=== PATIENT | male | born 1965 | race Caucasian/White ===

== ENCOUNTER 2020-05-16 01:12 | Emergency (ER) | payer MEDICAID, SELFPAY ==
--- NOTE | 2020-05-16 01:16 | XR_ITS ---
WS: [id number] Portable AP upright chest, 05/16/2020 Clinical Data: cough Comparison: PA and lateral chest, 12/28/2018. Findings: No nodules, masses or effusions are seen. The heart is normal. The pulmonary vascularity is not increased. No pneumonia or pneumothorax is seen. There is a dextroscoliosis. The aortic arch and descending aorta show mild tortuosity. The diaphragms are flattened. Monitor leads are on the chest wall. XR/XR chest 1V portable [id number] Impression: Atherosclerosis and hyperinflation.
[2020-05-16 01:24] VITALS: BP 143/92; PULSE 112; RESP 14; TEMP 36.7; O2SAT 98; BMI 22.2
--- NOTE | 2020-05-16 01:27 | ECG_ITS ---
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 Measurements Intervals [place] Rate: 104 P: 76 ME: 146 QRS: 72 QRSD: 96 T: 67 QT: 336 QTc: 444 Interpretive Statements SINUS TACHYCARDIA No previous ECG available for comparison Electronically Signed On 05-16-2020 22:03:22 MEDICAL APPOINTMENT CLERK by Sruthi Correia M.D. [id number]
[2020-05-16 01:30] VITALS: BP 143/92; PULSE 110; RESP 28; O2SAT 97
--- NOTE | 2020-05-16 01:30 | CTR_ITS ---
PROCEDURE INFORMATION: Exam: CT Angiography Chest With Contrast Exam date and time: 05/16/2020 1:32 AM Age: 54 years old Clinical indication: Cough with hemorrhage; Patient HX: Hemoptysis with lower chest discomfort. History of dvt. Exam performed twice. Both attempts did not have ideal bolus timing. Axial images sent from both runs. Can send additional reformats if requested. ; Additional info: Hemoptysis, history of blood clot TECHNIQUE: Imaging protocol: Computed tomographic angiography of the chest with contrast. 3D rendering (Not supervised by radiologist): MIP and/or 3D reconstructed images were created by the technologist. Radiation optimization: All CT scans at this facility use at least one of these dose optimization techniques: automated exposure control; mA and/or kV adjustment per patient size (includes targeted exams where dose is matched to clinical indication); or iterative reconstruction. Contrast material: OMNI 350; Contrast volume: 136 ml; Contrast route: INTRAVENOUS (IV); COMPARISON: CR XR chest 1V portable [id number] 05/16/2020 1:42 AM RADIATION DOSE METRICS: Total DLP (mGy-cm): 1053.82 FINDINGS: Pulmonary arteries: Suboptimal pulmonary arterial contrast intensity secondary to film contrast timing delay abnormalities and additional limitation secondary to motion degradation. Aorta: Unremarkable. No aortic aneurysm. No aortic dissection. Lungs: Hyperinflation. Multiple subpleural bleb formation with areas of pleuroparenchymal scarring. Patchy parenchymal opacities in the lingula and medial left lower lobe. Slightly nodular configured component at the lingula measures 0.8 cm. Subpleural dependent atelectasis right lower lobe posteriorly Pleural spaces: Unremarkable. No pneumothorax. No pleural effusion. Heart: Normal right to left ventricular ratio. Lymph nodes: Small right hilar adenopathy. Small mediastinal adenopathy largest left distal paratracheal lymph node measures 2.0 cm. Stomach and bowel: Prominent expansion of the stomach with food debris. Bones/joints: Mild degenerative change of the spine. Soft tissues: Few scattered calcified granulomata. CT/CT angio chest PE protcl [id number] IMPRESSION: 1. Suboptimal contrast timing bolus and extensive motion does not allow detailed assessment of distal pulmonary arterial structures. No dominant filling defect within main pulmonary arteries. 2. Hyperinflation with areas of pleuroparenchymal scarring. 3. Minor lingula and left lower lung focal parenchymal opacities favoring inflammatory infectious pneumonitis. 4. Minor right hilar and mediastinal adenopathy could be reactive. 5. Slight nodular configuration of opacity at the lingula measures 0.8 cm.For patients at low risk (minimal or absent history of smoking and of other known risk factors), recommend CT Chest at 6-12 months, then consider CT Chest at 18-24 months. For patients at high risk (history of smoking or of other known risk factors), recommend CT Chest at 6-12 months, then CT Chest at 18-24 months. (Reference: Sumit) REFERENCES: Sumit Ortiz, et al. Guidelines for Management of Incidental Pulmonary Nodules Detected on CT Images: From the Fleischner Society 2017. Radiology. 2017;284(1):228-243. Radiation Dose CTDIVOL = (mGy): DLP = 1053.82 (mGy-cm)
--- NOTE | 2020-05-16 01:31 | W.ED.GENADLT ---
HPI - General Adult General: Chief complaint: General Medical Stated complaint: coughing blood clots Time Seen by Provider: 05/16/20 01:29 History of Present Illness: HPI narrative: 54-year-old male patient presents to the emergency department with 2-day history of coughing up blood. He reports yesterday coughed up a small dark-colored blood clot but states today he has coughed up a cupful. He reports his mother has history of blood clots. He denies leg swelling or chest pain, shortness of breath. He is a heavy cigarette smoker. 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 He denies fever chills, denies use of blood thinners. Denies use of aspirin. He also complains of sore throat. Patient also reports he has been out of his atenolol for several days. Onset (ago): day(s) (2) Associated symptoms: Reports cough; Deny chest pain, diaphoresis, dyspnea, headache(s), nausea, rash, palpitations or vomiting Treatments prior to arrival: none Review of Systems General: Reports: 10 or more systems reviewed and unremarkable except in HPI and below Const: Denies: fever(s), chills or diaphoresis Eyes: Denies: blurry vision or eye redness ENMT: Denies: throat pain, dental pain or disequilibrium Card: Denies: chest pain, palpitations or irregular heart rhythm Resp: Reports: hemoptysis; Denies: dyspnea, productive cough, non-productive cough or wheezing GI: Denies: abdominal pain, nausea or vomiting : Denies: dysuria Musc: Denies: neck pain, back pain, joint pain, joint warmth or joint stiffness Skin/Breast: Denies: rash or pruritus Neuro: Denies: headache(s), weakness in extremities or behavioral changes Psych: Denies: anxiety, depression or change in appetite Salo/Lymph: Denies: easy bruising PFS ED PFSH: Medical History (Updated 05/16/20 @ 03:28 by CHERRIE Temple) HTN (hypertension) Tobacco abuse Family History (Updated 05/16/20 @ 01:41 by CHERRIE Temple) Mother Blood clot in vein Social History (Updated 05/16/20 @ 01:51 by CHERRIE Temple) Smoking and tobacco status: current every day smoker cigarettes Packs smoked per day: 1.5 Years cigarettes smoked: 36 Substance/Drug Use: never Caregiver/support person: No Lives independently: Yes Household members: none Housing: House Physical Exam Const: COMMON NORMALS: no acute distress, average body habitus, patient oriented x3, healthy appearing, alert and well nourished GENERAL APPEARANCE: cooperative, comfortable, well kempt, well developed and well hydrated; not anxious, not ill appearing and not frail appearing NUTRITIONAL APPEARANCE: thin ORIENTATION/CONSCIOUSNESS: Yes awake, Yes oriented to person, Yes oriented to place and Yes oriented to time HENMT: COMMON NORMALS: normocephalic, external ears normal, Normal external nose present and moist oral mucous membranes HEAD & SCALP: normocephalic FACE & SINUS: normal facial exam and face symmetric NOSE: Normal external nose present EXTERNAL EAR: Yes external ears normal Eye: COMMON NORMALS: Equal, round and reactive pupils present and EOMs intact bilaterally GENERAL EYE: appearance normal, both eyes and all related structures PUPIL: Yes Equal, round and reactive pupils present Neck/C-Spine: COMMON NORMALS: full ROM and no lymphadenopathy GENERAL: Yes normal visual inspection and Yes trachea midline CERVICAL SPINE: Yes cervical ROM normal Lymph: LYMPHATIC: no lymphadenopathy noted Chest: COMMONS NORMALS: normal inspection of the chest and normal palpation of entire chest wall Resp: COMMON NORMALS: normal respiratory effort, No retractions and No use of accessory muscles EFFORT & INSPECTION: Yes able to speak in complete sentences, No labored and No audible wheezes AUSCULTATION: wheezes, diminished lung sounds bilateral and rub present Cardio: COMMON NORMALS: regular rate, regular rhythm, S1 normal heart sound present, S2 normal heart sound present and Peripheral pulses 2+ throughout RATE: regular rate and tachycardic RHYTHM: regular rhythm HEART SOUNDS: S1 normal heart sound present and S2 normal heart sound present PERIPHERAL PULSES: Peripheral pulses 2+ throughout GI: COMMON NORMALS: Normal to inspection, nondistended, normoactive bowel sounds present, Soft to palpation and non-tender INSPECTION: Yes normal to inspection AUSCULTATION: No Hyperactive bowel sounds present and No Absent bowel sounds PALPATION: Yes Soft to palpation : COMMON NORMALS: Yes no CVA tenderness BLADDER/KIDNEY EXAM: Yes no CVA tenderness Back/Pelvis: COMMON NORMALS: no CVA tenderness, thoracic and lumbar spine normal to inspection and no thoracic nor lumbar tenderness Extremity: COMMON NORMALS: normal to inspection, full ROM, capillary refill normal, no joint enlargement, no clubbing, cyanosis or edema, no calf tenderness and no pedal edema GENERAL: Yes normal exam except as noted Neuro: MARIA ELENA COMA SCALE: document GCS findings Maria Elena coma scale eye opening: Spontaneous [place] coma scale verbal response: Orientated Maria Elena coma scale motor response: Obey commands [place] coma scale total score: 15 COMMON NORMALS: patient oriented x3 and no focal motor deficits SENSORIUM/ORIENTATION: Yes alert, Yes oriented to person, Yes oriented to place and Yes oriented to time SPEECH: speech normal GAIT: Yes Normal gait present MOTOR EXAM: 5/5 motor strength present throughout Psych: COMMON NORMALS: mental status grossly normal, Normal thought process present and cooperative APPEARANCE: Yes well kempt ACTIVITY/MOTOR BEHAVIOR: Yes appropriate eye contact THOUGHT PROCESS: Normal thought process present Skin: COMMON NORMALS: no rashes or lesions noted, no wounds, turgor normal, no petechiae and no mottling GENERAL SKIN EXAM: no rashes or lesions noted, elasticity normal and turgor normal Course Vital Signs: Vital signs: Vital Signs Temperature 98.1 F 05/16/20 01:24 Pulse Rate 101 H 05/16/20 02:33 Respiratory Rate 22 H 05/16/20 02:33 Blood Pressure 129/71 05/16/20 02:33 Pulse Oximetry 94 05/16/20 02:33 MDM - General Adult Lab Data: Labs: Lab Results 05/16/20 05/16/20 05/16/20 Range/Units 01:40 01:40 01:40 WBC 8.0 (4.0-10.0) 10^3/ uL RBC 4.10 (4.1-5.3) 10^6/u L Hgb 12.7 (11.7-16.6) g/dL Hct 37.6 L (42.0-52.0) % MCV 91.7 (80-94) fL MCH 31.0 (28.0-34.0) pg MCHC 33.8 (30.0-36.0) g/dL RDW 13.1 (12.1-15.1) % Plt Count 272 (130-400) 10^3/c mm MPV 9.3 (7.4-10.4) fL Neut % (Auto) 56.9 % Lymph % (Auto) 32.0 % Moore % (Auto) 7.4 % Eos % (Auto) 3.1 % Baso % (Auto) 0.3 % Neut # (Auto) 4.54 (1.8-7.7) 10^3/u L Lymph # (Auto) 2.6 (0.8-4.8) 10^3/u L Moore # (Auto) 0.6 (0.2-0.9) 10^3/u L Eos # (Auto) 0.3 (0.0-0.8) 10^3/u L Baso # (Auto) 0.0 (0.0-0.1) 10^3/u L Nucleated RBC % (a uto) 0 % Nucleated RBCs # 0.0 /100WBC PT 12.40 (12.1-14.9) SECO NDS INR 0.90 (0.8-1.2) Sodium 141 (136-145) mmol/L Potassium 3.8 (3.5-5.1) mmol/L Chloride 102 (98-107) mmol/L Carbon Dioxide 29 (22-29) mmol/L Anion Gap 13.8 (5-19) BUN 11 (6-20) mg/dL Creatinine 0.9 (0.7-1.2) mg/dL GFR Calculation 88.3 L (90-130) mL/min Glucose 109 (65-115) mg/dL Calculated Osmolal ity 292 (285-295) mOsm/k g Calcium 9.2 (8.5-10.5) mg/dL Total Bilirubin 0.2 (0.15-1.2) mg/dL AST 28 (0-40) U/L ALT 17 (0-41) U/L Alkaline Phosphata se 104 (40-130) IU/L Total Protein 7.0 (6.6-8.7) g/dL Albumin 3.8 (3.5-5.2) g/dL Globulin 3.2 (1.3-4.6) g/dL EKG Data^: EKG 1: EKG interpretation date: 05/16/20 EKG interpretation time: 01:40 Computer generated interpretation: Chest CTA 05/16/20 01:30 IMPRESSION: 1. Suboptimal contrast timing bolus and extensive motion does not allow detailed assessment of distal pulmonary arterial structures. No dominant filling defect within main pulmonary arteries. 2. Hyperinflation with areas of pleuroparenchymal scarring. 3. Minor lingula and left lower lung focal parenchymal opacities favoring inflammatory infectious pneumonitis. 4. Minor right hilar and mediastinal adenopathy could be reactive. 5. Slight nodular configuration of opacity at the lingula measures 0.8 cm.For patients at low risk (minimal or absent history of smoking and of other known risk factors), recommend CT Chest at 6-12 months, then consider CT Chest at 18-24 months. For patients at high risk (history of smoking or of other known risk factors), recommend CT Chest at 6-12 months, then CT Chest at 18-24 months. (Reference: Sumit) REFERENCES: Sumit Ortiz, et al. Guidelines for Management of Incidental Pulmonary Nodules Detected on CT Images: From the Fleischner Society 2017. Radiology. 2017;284(1):228-243. Radiation Dose CTDIVOL = (mGy): DLP = 1053.82 (mGy-cm) Sinus tachycardia, abnormal rhythm ECG, ventricular rate 104 Discharge Plan Discharge Patient Disposition: Home Clinical Impression: Hemoptysis, Pneumonitis Condition: Stable Prescriptions: New atenolol 25 mg tablet 25 mg PO DAILY Qty: 30 RF: 0 levofloxacin 750 mg tablet 750 mg PO DAILY 7 Days Qty: 7 RF: 0 Discharge Orders: Discharge ED (Routine); Ordered 05/16/20 Ordered By: Hannah Gutierrez Referrals: Catracho Mix MD [Primary Care Provider] - Discharge Diet: Usual diet Discharge Activity: Resume usual activity Patient Instructions: Acute Hemoptysis (ED), Opioid Safety, Pneumonia - Bacterial Activity Restrictions/Additional Instructions: Take antibiotics until all gone, even if feeling better Drink lots of fluids to avoid dehydration Return the emergency department if you develop difficulty breathing, coughing up large amounts of blood or worsening symptoms such as vomiting Follow-up with Dr. Mix in 5 to 7 days to ensure you are improving Coding Level of Care Code ED Cooking Appliance Repair Technician for Chg Fwd Exam Comprehensive
[2020-05-16] MEDS: iohexol 350 mg/mL 100 mL Btl IV ×2 (02:02→02:17)
[2020-05-16 02:09] LABS: Basophils % 0.3 %; Eosinophils # 0.3 10^3/uL (0.0-0.8); Eosinophils % 3.1 %; Hematocrit 37.6 % (42.0-52.0); Hemoglobin 12.7 g/dL (11.7-16.6); Lymphocytes # 2.6 10^3/uL (0.8-4.8); Mean Corpuscular HGB Conc 33.8 g/dL (30.0-36.0); Mean Corpuscular Volume 91.7 fL (80-94); Mean Platelet Volume 9.3 fL (7.4-10.4); Monocytes # 0.6 10^3/uL (0.2-0.9); Monocytes % 7.4 %; Neutrophils # 4.54 10^3/uL (1.8-7.7); Neutrophils % 56.9 %; Nucleated Red Blood Cells % 0 %; Platelet Count 272 10^3/cmm (130-400); Red Cell Distribution Width 13.1 % (12.1-15.1)
[2020-05-16 02:29] LABS: Alanine Aminotransferase 17 U/L (0-41); Albumin Level 3.8 g/dL (3.5-5.2); Alkaline Phosphatase 104 IU/L (40-130); Anion Gap 13.8 (5-19); Aspartate Amino Transferase 28 U/L (0-40); Blood Urea Nitrogen 11 mg/dL (6-20); Calcium 9.2 mg/dL (8.5-10.5); Carbon Dioxide 29 mmol/L (22-29); Chloride 102 mmol/L (98-107); Globulin 3.2 g/dL (1.3-4.6); Glomerular Filtration Rate 88.3 mL/min (90-130); Glucose 109 mg/dL (65-115); Osmolality Calculated 292 mOsm/kg (285-295); Potassium 3.8 mmol/L (3.5-5.1); Sodium 141 mmol/L (136-145); Total Bilirubin 0.2 mg/dL (0.15-1.2)
[2020-05-16 02:33] VITALS: BP 129/71; PULSE 101; RESP 22; O2SAT 94
[2020-05-16] MEDS: levoFLOXacin 750 mg Tablet PO (03:38)
[2020-05-16 03:40] VITALS: BP 117/76; PULSE 77; RESP 18; TEMP 36.6; O2SAT 94
== END 2020-05-16 03:42 | disposition home or self-care (01) ==
PROVIDERS: Emergency Medicine; Emergency Provider Nurse Practitioner Family; PCP Family Medicine
DX: R04.2 Hemoptysis (principal); J18.9 Pneumonia, unspecified organism; I10 Essential (primary) hypertension; F17.210 Nicotine dependence, cigarettes, uncomplicated
CPT/HCPCS: 71045; 71275; 80053; 85025; 85610; 93005; 99283; Q9967

== ENCOUNTER → 2021-07-18 09:08 | Outpatient (BNVA) | payer MEDICAID, SELFPAY | PROVIDERS: PCP Family Medicine; Visit Provider Family Medicine | DX: Z51.81 Encounter for therapeutic drug level monitoring (principal); Z00.00 Encounter for general adult medical examination without abnormal findings; Z79.1 Long term (current) use of non-steroidal anti-inflammatories (NSAID); Z12.5 Encounter for screening for malignant neoplasm of prostate; E03.9 Hypothyroidism, unspecified; R79.89 Other specified abnormal findings of blood chemistry | CPT/HCPCS: 80053; 84153; 84443; 85025 ==

== ENCOUNTER 2023-02-26 00:38 | Inpatient (IN) | payer MEDICARE, MEDICAID, SELFPAY ==
--- NOTE | 2023-02-26 00:42 | W.ED.PSYCHS ---
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 He states that he is talked to his primary care provider and was advised to come to the emergency department to be evaluated. He states that he is going to use a gun on himself and he does have access to a gun. He states that he has had increased significant life stressors to include being homeless, not being able to work, getting from his and is not able to see his grandkids. Associated symptoms: Reports depression and suicidal ideation Review of Systems General: Reports: 10 or more systems reviewed and unremarkable except in HPI and below Psych: Reports: depression and suicidal ideation [facility] ED PFSH: Medical History (Updated 02/26/23 @ 01:19 by Nic Ferreira MD) HTN (hypertension) Tobacco abuse Surgical History (Updated 12/31/22 @ 13:27 by Catracho Mix MD) History of right knee surgery Right ACL - 10/1999 History of shoulder surgery Right shoulder 07/2014 - Dr Paredes Family History Mother Blood clot in vein Social History (Updated 01/16/23 @ 08:37 by Catracho Mix MD) Smoking and tobacco/nicotine status: current every day tobacco/nicotine user cigarettes Packs smoked per day: 1 Years cigarettes smoked: 36 Alcohol intake: current Alcohol intake frequency: few times a week Substance/Drug Use: former Date of last use: 01/2022 Caregiver/support person: No Lives independently: Yes Household members: none Housing: House Physical Exam Narrative: EXAM NARRATIVE: Constitutional: the patient appears well nourished and of normal development. Vital signs as documented. No acute distress at present. Alert and oriented-to person, place, time and situation. Head, eyes, ears, nose, mouth, throat: Normocephalic, atraumatic. Pupils-equal, round, reactive to light. No scleral icterus. Normal-appearing external ears. Normal appearing nasal turbinates, no drainage. No obvious oral lesions, posterior oropharynx without erythema or exudates. Neck: Supple, trachea is midline, no lymphadenopathy, no jugular venous distension, thyromegaly, or carotid bruits. Carotid upstrokes are brisk bilaterally. Lungs: clear to auscultation to all lung huang. Symmetrical rise and fall of chest, no obvious signs of increased work of breathing at present. Cardiac: Regular rate and rhythm, positive S1, S2. No murmurs, rubs or gallops that I can appreciate Abdomen: Soft, non-tender to palpation, normal active bowel sounds to all quadrants. No palpable masses, no organomegaly and abdominal bruits. Extremities: 2+ pulses in the upper extremities that are equal bilaterally, 2+ pulses in the lower extremities that are equal bilaterally. Non-edematous. Moves all extremities well, sensation to all extremities are noted. Skin: Warm, dry, intact. Course Vital Signs: Vital signs: Vital Signs Temperature 97.3 F L 02/26/23 00:47 Pulse Rate 84 02/26/23 00:47 Respiratory Rate 18 02/26/23 00:47 Blood Pressure 120/63 02/26/23 00:47 Pulse Oximetry 100 02/26/23 00:47 Oxygen Delivery Me thod Room Air 02/26/23 00:47 MDM - Psych Medical Decision Making Physical exam completed and documented, I will obtain psychiatric clearance labs and contact the hospital Neuropsych Unit attending physician for placement on voluntary inpatient basis. Medical Records I reviewed the patient's medical records. Lab Data 02/26/23 01:05 02/26/23 01:05 Laboratory Results WBC 6.41 10^3/uL (3.29-11.43) 02/26/23 01:05 RBC 4.25 10^6/uL (3.85-5.65) 02/26/23 01:05 Hgb 13.10 g/dL (11.27-16.99) 02/26/23 01:05 Hct 39.0 % (37-53) 02/26/23 01:05 MCV 91.8 fl (82-101) 02/26/23 01:05 MCH 30.8 pg (27-33) 02/26/23 01:05 MCHC 33.6 g/dL (30-55) 02/26/23 01:05 RDW 13.2 % (12.1-15.1) 02/26/23 01:05 Plt Count 227 10^3/cmm (157-399) 02/26/23 01:05 MPV 8.9 fL (7.4-10.4) 02/26/23 01:05 Neut % (Auto) 45.8 % 02/26/23 01:05 Lymph % (Auto) 38.2 % 02/26/23 01:05 Hardy % (Auto) 8.0 % 02/26/23 01:05 Eos % (Auto) 7.2 % 02/26/23 01:05 Baso % (Auto) 0.5 % 02/26/23 01:05 Neut # (Auto) 2.94 10^3/uL (1.8-7.7) 02/26/23 01:05 Lymph # (Auto) 2.5 10^3/uL (0.8-4.8) 02/26/23 01:05 Hardy # (Auto) 0.5 10^3/uL (0.2-0.9) 02/26/23 01:05 Eos # (Auto) 0.5 10^3/uL (0.0-0.8) 02/26/23 01:05 Baso # (Auto) 0.0 10^3/uL (0.0-0.1) 02/26/23 01:05 Nucleated RBC % (auto) 0 % 02/26/23 01:05 Nucleated RBCs # 0.0 /100WBC 02/26/23 01:05 Sodium 139 mmol/L (136-145) 02/26/23 01:05 Potassium 3.7 mmol/L (3.5-5.1) 02/26/23 01:05 Chloride 104 mmol/L (98-107) 02/26/23 01:05 Carbon Dioxide 26 mmol/L (22-29) 02/26/23 01:05 Anion Gap 12.7 (5-19) 02/26/23 01:05 BUN 16 mg/dL (6-20) 02/26/23 01:05 Creatinine 0.8 mg/dL (0.7-1.2) 02/26/23 01:05 GFR Calculation 100.0 mL/min (90-130) 02/26/23 01:05 Glucose 68 mg/dL (65-115) 02/26/23 01:05 Calculated Osmolality 287 mOsm/kg (285-295) 02/26/23 01:05 Calcium 9.4 mg/dL (8.5-10.5) 02/26/23 01:05 Total Bilirubin 0.3 mg/dL (0.15-1.2) 02/26/23 01:05 AST 19 U/L (0-40) 02/26/23 01:05 ALT 15 U/L (0-41) 02/26/23 01:05 Alkaline Phosphatase 98 U/L (40-130) 02/26/23 01:05 Total Protein 6.5 g/dL (6.6-8.7) L 02/26/23 01:05 Albumin 3.9 g/dL (3.5-5.2) 02/26/23 01:05 Globulin 2.6 g/dL (1.3-4.6) 02/26/23 01:05 Salicylates < 0.3 mg/dL (3-10) L 02/26/23 01:05 Acetaminophen < 5.0 ug/mL (10-30) L 02/26/23 01:05 Ethyl Alcohol 29 mg/dL (0-10) H 02/26/23 01:05 No radiology studies performed this visit EKG Data EKG 1: Interpretation: Twelve-lead EKG obtained at 0103 demonstrates normal sinus rhythm with a ventricular rate of 77 bpm NC interval 185 QRS duration 101 QT 350 QTc 382 there is no acute ST elevation to demonstrate ischemia I did review the patient's previous EKG and although it does appear to have slight elevation in leads II, III and aVF as well as the V3 V4 V5 and V6 the patient is not actively having any chest pain and it is a similar finding on this EKG as it was on his previous EKG. Discharge Plan Discharge Patient Disposition: Admitted As Inpatient Clinical Impression: Depression with suicidal ideation Condition: Stable Coding Level of Care Code ED Rope Twisting Machine Operator for Rochelle Pichardo
[2023-02-26 00:47] VITALS: BP 120/63; PULSE 84; RESP 18; TEMP 36.3; O2SAT 100; BMI 20.3
--- NOTE | 2023-02-26 01:03 | ECG_ITS ---
[facility] Test Date: 2023-02-26 Pat Name: Alex Tse Department: Room: Gender: Male Lead Systems Developer: : 1965 Requested By: Nic Ferreira Order Number: [id number] Dalia MD: Tim Pederson M.D. Measurements Intervals [place] Rate: 77 P: 77 MO: 185 QRS: 79 QRSD: 101 T: 76 QT: 350 QTc: 397 Interpretive Statements SINUS RHYTHM ST ELEVATION, PROBABLY EARLY REPOLARIZATION [ST ELEVATION WITH NORMALLY INFLECTED T-WAVE] Compared to ECG 05/16/2020 01:35:39 ST (T wave) deviation now present Early repolarization now present Sinus tachycardia no longer present Electronically Signed On 02-26-2023 13:43:02 DIMENSION SPECIFICATION INSPECTOR by Tim Pederson M.D. [id number]
[2023-02-26 01:11] LABS: Basophils % 0.5 %; Eosinophils # 0.5 10^3/uL (0.0-0.8); Eosinophils % 7.2 %; Lymphocytes # 2.5 10^3/uL (0.8-4.8); Lymphocytes % 38.2 %; Mean Corpuscular HGB Conc 33.6 g/dL (30-55); Mean Corpuscular Hemoglobin 30.8 pg (27-33); Mean Corpuscular Volume 91.8 fl (82-101); Mean Platelet Volume 8.9 fL (7.4-10.4); Monocytes # 0.5 10^3/uL (0.2-0.9); Neutrophils # 2.94 10^3/uL (1.8-7.7); Neutrophils % 45.8 %; Nucleated Red Blood Cells % 0 %; Platelet Count 227 10^3/cmm (157-399); Red Blood Count 4.25 10^6/uL (3.85-5.65); Red Cell Distribution Width 13.2 % (12.1-15.1); White Blood Count 6.41 10^3/uL (3.29-11.43)
[2023-02-26 01:32] LABS: Alanine Aminotransferase 15 U/L (0-41); Albumin Level 3.9 g/dL (3.5-5.2); Alcohol Level 29 mg/dL (0-10); Alkaline Phosphatase 98 U/L (40-130); Anion Gap 12.7 (5-19); Aspartate Amino Transferase 19 U/L (0-40); Blood Urea Nitrogen 16 mg/dL (6-20); Calcium 9.4 mg/dL (8.5-10.5); Carbon Dioxide 26 mmol/L (22-29); Chloride 104 mmol/L (98-107); Creatinine Clr Calc Pharmacy 101.4475; Globulin 2.6 g/dL (1.3-4.6); Glucose 68 mg/dL (65-115); Osmolality Calculated 287 mOsm/kg (285-295); Potassium 3.7 mmol/L (3.5-5.1); Sodium 139 mmol/L (136-145); Total Bilirubin 0.3 mg/dL (0.15-1.2); Total Protein 6.5 g/dL (6.6-8.7)
[2023-02-26 01:34] LABS: Acetaminophen < 5.0 ug/mL (10-30); Salicylate < 0.3 mg/dL (3-10)
[2023-02-26 03:04] VITALS: BP 127/83; PULSE 90; RESP 20; TEMP 36.8; O2SAT 96
[2023-02-26 03:15] VITALS: RESP 17
--- NOTE | 2023-02-26 03:41 | PC.ADMIT ---
[address] [facility] Admission Note: The patient,Alex Tse,57 y/o, was given written information regarding hospital policies, unit procedures and contact persons. Patient's smoking status: current every day smoker. A PACK A DAY. Vital Signs - 8 hr 02/26/23 00:47 02/26/23 03:04 02/26/23 03:06 Temperature 97.3 F L 98.3 F Pulse Rate 84 90 Respiratory Rate 18 20 H Blood Pressure 120/63 127/83 Pulse Oximetry 100 96 Oxygen Delivery Method Room Air Room Air Room Air 02/26/23 03:15 Temperature Pulse Rate Respiratory Rate 17 Blood Pressure Pulse Oximetry Oxygen Delivery Method ADMITTED FROM ER VIA WHEELCHAIR, RN AND SECURITY AT 303. PT IS VOUNTARY. PT STATES HE IS HERE DUE TO HAVING SUICIDAL THOUGHTS AND DEPRESSION DAILY FOR THE LAST THREE MONTHS. PT REPORTS HE TAKES CITALOPRAM 40 MG DAILY, SYNTHROID 25 MCGS DAILY AND ATENOLOL 25 MG DAILY. PT STATES HE TAKES HIS MEDS DAILY BUT RAN OUT OF HIS CITALOPRAM THIS WEEK. PT REPORTS GENERALIZED PAIN 5/10 BUT DECLINES ANY PHARMACEUTICAL INTERVENTIONS. PT STATES HE IS HOMELESS, DEPRESSED AND HAS HAD INCREASED THOUGHTS OF SUICIDE WITH NO PLAN. PT DENIES HI AND AVH AT THIS TIME. PT WAS GIVEN FOOD TO EAT REQUESTED AND MADE COMFORTABLE. ORIENTATED TO UNIT, SAFETY RULES AND GUIDELINES. ALL QUESTIONS ANSWERED AND SUPPORT VOICED.
--- NOTE | 2023-02-26 03:43 | PC.NURSE ---
SECURITY CALLED DUE TO STAFF FINDING A CRYSTAL/ICE LIKE SUBSTANCE IN FAMOTIDINE BOTTLE AND A HALF SMOKED MARIJUANA CIGARETTE. SECURITY HERE TO DESTROY PER FACILITY POLICY.
[2023-02-26 06:00] VITALS: RESP 16
--- NOTE | 2023-02-26 06:10 | W.PM.NPUH&PS ---
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 He states that he is talked to his primary care provider and was advised to come to the emergency department to be evaluated. He states that he is going to use a gun on himself and he does have access to a gun. He states that he has had increased significant life stressors to include being homeless, not being able to work, getting from his and is not able to see his grandkids. Associated symptoms: Reports depression and suicidal ideation Admitted to the neuropsychiatric unit for definitive treatment of those issues. He presented today very lethargic. Today BAL of 29 and his UDS has not been obtained at this point. Discussed getting a UDS with him and treatment team. Reports a possible stimulant/methamphetamine use in addition to the alcohol use. Multiple attempts made to engage and attempt to keep him awake with no real success. Most of the information here is obtained from review of current records. An excerpt of his interaction with crisis stabilization is included below for recent history. Only noteworthy mental health care and system is back in January 2011 through August 2011 he did get outpatient treatment at [facility]. Otherwise appears that recent stressors have led to him coming here and active addiction has led to his current presentation and he did report suicidality to emergency room staff. We discussed Dr. Bernard being here tomorrow to attempt to get better history. Per his 11/19/2022 crisis stabilization center notes: Case management: Current Presentation: Client appeared anxious throughout encounter. unkempt, rapid speech and motor activity. Euphoric affect, Tangential thought process. Intervention: Client came in seeking housing. Client indicated he has recently became homeless and does not have a place to go. Upon entry assessment, client indicated he had thoughts of harming someone else. CSS spoke with client concerning these thoughts. Client noted he was angry, but did not want to get in trouble or act upon his feelings. CSS deferred to [facility] to assess for SI. Upon further assessment, client agreed he would not act on these feelings and was more just frustrated and angry. Client agreed to complete and follow safety plan in collaboration with the CSS. Client indicated some positive coping mechanisms include enjoying nature alone, swimming, fishing, and shooting pool. Client has support systems including step daughter, ex , and his oriental orthodox. Client attributes his spirituality to be a major component of his life. Client does have medicare and medicaid. Client does have limited income and draws an SSI check. Client states he has been diagnosed with bipolar but has not taken medication for the last 10 months. Client states he has not been sleeping well, only for 2 hours a night. I am easy to anger and like I am walking on eggshells. Client also said it feels like his brain wont shut off . Client has extensive history of trauma involving of family/friends in which he witnessed firsthand. Client was not interested in receiving services through [facility] at this time. Client indicated he does not have any substance use aside from alcohol, which he stated he doesn't drink to get drunk, just a few beers here and there . Client stated he has used Methamphetamine in the past, but not within the last 10 years. Client says he has many physical ailments making it difficult to perform daily functions and cause him great distress. Client was provided with snack, water, a shower, clothing, and personal hygiene products. Client was also provided a e-Zassi backpack. Return plan was established to follow up with potential housing resources and creating stability goals. Client Response: Client was appreciative of services. Client Barriers: unhoused, mental health, substance use, manic state. Outcome of Encounter: Client left facility and indicated he would return the following day. Current SI: None Current HI: None Therapy note: Current Presentation: [facility] met with Alex due to his initial presentation of agitation and verbalization of wanting to harm his prior roommates. Alex vents about his current living situation and recent escalation between him and his roommates. He reports they have kicked me out and stole my stuff . He is concerned about not being able to take back possession of his belongings and having to start all over . Intervention: DRY CHARGE PROCESS ATTENDANT assessed for safety issues. Alex does verbalize thoughts of throwing them (roommates) out the window ; however, upon further assessment of HI he states i would not do that, i plan to go to the police department after here and see what i got to do to get my stuff back . He reports he is struggling with appropriate anger emotions related to these recent events and HI has crossed his mind; however, denies any intent to act on this. He recognizes he would not want to suffer the consequences of harming someone. Alex does report he has a place to stay, although it is not very comfortable. [facility] educated Alex on [facility] services and encouraged he continue to engage with [facility] staff in order to help address his current stability issues. Client Response to Intervention: Although Alex remained in a somewhat manic state throughout the interview, his behavior turned more positive and thanked this [facility] staff multiple times after hearing how [facility] serviecs could be beneficial to him. He agrees to create a safety plan with [facility] staff Narcisa Sheehan before leaving today. He will reach out to [facility] staff should his HI escalate to a dangerous level. Final Disposition: Alex will create a safety plan with [facility] staff Narcisa Sheehan. Alex will follow back up with [facility] staff regarding working on his stability needs. Current SI: None Current HI: Homicidal Thoughts/Behave (safety plan was completed by Narcisa Sheehan, [facility] Client application support consultant. Meds NPU Home Medications Medication Instructions Recorded Confirmed Last Taken Type atenolol 25 mg tablet 25 mg PO DAILY #30 tabs 12/31/22 02/26/23 Unknown Rx citalopram 20 mg tablet 20 mg PO DAILY #30 tabs 12/31/22 02/26/23 Unknown Rx levothyroxine 25 mcg tablet 25 mcg PO DAILY #30 tabs 12/31/22 02/26/23 Unknown Rx Allergies Allergy/AdvReac Type Severity Reaction Status Date / Time tramadol Allergy ADR-Itching Verified 02/26/23 00:58 PFSH NPU PFSH: Medical History (Updated 02/27/23 @ 18:32 by Navneet Bernard MD) HTN (hypertension) Tobacco abuse Surgical History (Updated 12/31/22 @ 13:27 by Catracho Mix MD) History of right knee surgery Right ACL - 10/1999 History of shoulder surgery Right shoulder 07/2014 - Dr Paredes Family History Mother Blood clot in vein Social History (Updated 01/16/23 @ 08:37 by Catracho Mix MD) Smoking and tobacco/nicotine status: current every day tobacco/nicotine user cigarettes Packs smoked per day: 1 Years cigarettes smoked: 36 Alcohol intake: current Alcohol intake frequency: few times a week Substance/Drug Use: former Date of last use: 01/2022 Caregiver/support person: No Lives independently: Yes Household members: none Housing: House Mental Status Exam MSE Comments: This is a well-nourished well-developed white male in hospital scrubs with limited grooming and eye contact. No abnormal movements except for psychomotor retardation. Uncooperative with exam in no significant distress. Speech was limited and decreased rate and volume. Mood not described affect subdued. Thought process linear. Thought content: Patient did not respond to questions with anxiety but had no aggression or disorders, there were no delusions noted, he did not appear to be attending to internal stimuli. Attention and concentration were impaired and memory was not observed but none were formally tested. He was hard to arouse and oriented to self. Insight, judgment and impulse control were impaired. Vitals/I&O/Wt Last Vital Signs Temp 98.3 F 02/26/23 03:04 Pulse 90 02/26/23 03:04 Resp 17 02/26/23 03:15 BP 127/83 02/26/23 03:04 Pulse Ox 96 02/26/23 03:04 O2 Del Method Room Air 02/26/23 03:06 Weight last 48 hrs Weight 64.41 kg Data NPU 02/26/23 01:05 02/26/23 01:05 A&P Assessment and plan (1) Depression: (2) Amphetamine abuse: (3) ETOH abuse: Plan This is a 57-year-old white male with depression and addiction who presents with limited interaction here with suicidal ideation. 1.? Continue current medication. 2.? Encourage individual, group, and milieu therapy. 3.? Continue q-15-minute checks for safety. 4.? Recommend sober living treatment at the highest level of care to which the patient is willing to commit. Involuntary Hold Information 96 Hour Hold: 96 Hour Involuntary Admission: No Attestations NPU Medical Necessity Statement*: Inpatient hospitalization is medically necessary and the clinically appropriate intervention, at this time. We will monitor medications and make changes as indicated. Patient will be in the hospital for over two midnights. Likely length of stay is three to five days. Coding Level of Care Code Acute Code for Chg Fwd Diagnoses Depression F32.A Amphetamine abuse F15.10 ETOH abuse F10.10
--- NOTE | 2023-02-26 06:44 | PC.NURSE ---
Unable to obtain patients vitals due to patient sleeping. RR obtained.
--- NOTE | 2023-02-26 11:11 | PC.OT ---
Attempted OT evaluation twice with second time at 10:05 am. Will attempt at later time.
--- NOTE | 2023-02-26 12:35 | PC.NURSE ---
Despite multiple attempts, patient refused to take his morning medications.
[2023-02-26 14:00] VITALS: BP 110/70; PULSE 107; RESP 13; O2SAT 99
[2023-02-27 06:00] VITALS: RESP 15
[2023-02-27] MEDS: levothyroxine 25 mcg Tablet PO (11:05)
[2023-02-27] MEDS: citalopram 20 mg Tablet PO (11:06)
--- NOTE | 2023-02-27 11:06 | PC.NURSE ---
Did not administer atenolol to patient because BP was 102/66
[2023-02-27 11:09] LABS: Add Urine Microscopic? NO; Charge for UA Resulting for Rev
[2023-02-27 11:34] LABS: Bilirubin Urine Neg (Negative); Blood Urine Neg (Negative); Glucose Urine UA Norm (Normal); Ketones Urine Negative (Negative); Leukocyte Esterase Urine Negative (Negative); Nitrate Urine Negative (Negative); Protein Urine Neg (Negative); Specific Gravity, Urine 1.025 (1.005-1.030); Urine Appearance Clear (CLEAR); Urine Color Dark Yellow (Yellow); Urobilinogen Urine Norm (Negative); pH Urine 5 (5-7)
[2023-02-27 13:35] VITALS: BP 109/61; PULSE 96; RESP 16; TEMP 36.6; O2SAT 98
[2023-02-27 13:45] LABS: Amphetamines Screen Urine Positive (Negative); Barbiturates Screen Urine Negative (Negative); Benzodiazepines Screen Urine Positive (Negative); Cocaine Screen Urine Negative (Negative); Opiate Screen Urine Negative (Negative); PCP Screen Urine Negative (Negative); THC Screen Urine Positive (Negative)
--- NOTE | 2023-02-27 18:21 | P.NPUPN_ITS ---
Subjective NPU 2 Subjective: 57-year-old male admitted for depression and suicidal ideation was positive for alcohol, benzodiazepines, and methamphetamine on admission. Patient continues to endorse depressed mood. He had isolated himself on the milieu. He continued to endorse having suicidal thoughts. He reports that the Celexa had been started on an outpatient basis. He continues to endorse feelings of hopelessness. He had minimized any drug use despite showing up positive for amphetamine on admission. Mental Status Exam 2 MSE Comments: Disheveled white male who appeared older than his stated age with fleeting on contact. He had his had covered by his sheet and was minimally cooperative on interview. His hygiene was poor. Speech was decreased in rate and volume with some slurring of speech noted. There was evidence of mild to moderate psychomotor retardation. His thought process appeared nonlinear and confused. He had endorsed suicidal ideation with no active plan. He denied any homicidal ideation. He did not appear to be responding to internal stimuli and denied any auditory or visual hallucinations. His mood was described as terrible. His affect was mood congruent and restricted in range. His insight is feeble. His judgment is poor. His impulse control appeared limited. He was alert and oriented to person and place but not date month or year. Vitals/I&O/Wt Last Vital Signs Temp 98 F 02/27/23 13:35 Pulse 96 02/27/23 13:35 Resp 16 02/27/23 13:35 BP 109/61 02/27/23 13:35 Pulse Ox 98 02/27/23 13:35 O2 Del Method Room Air 02/27/23 13:35 Weight last 48 hrs Weight 64.41 kg Data NPU 02/26/23 01:05 02/26/23 01:05 A&P Assessment and plan (1) Depression with suicidal ideation: (2) Amphetamine abuse: (3) ETOH abuse: Plan 1. continue individual, group and milieu therapy. 2. Restart Atenolol and celexa as prescribed 3. [facility] protocol. 4. Recommend sober living treatment at the highest level of care to which the patient is willing to commit. 5. TO-15 minute checks. Involuntary Hold Information 2 96 Hour Hold: 96 Hour Involuntary Admission: No Attestations NPU 2 Medical Necessity Statement*: Inpatient hospitalization is medically necessary and deemed to be the clinically appropriate intervention at this time. The patient medications will be initiated and adjusted as clinically indicated. Patient is likely length of stay is 4-6 days. Coding Level of Care Code Acute Code for g Fwd Diagnoses Depression with suicidal ideation F32.A; R45.851 Amphetamine abuse F15.10 ETOH abuse F10.10
[2023-02-27 20:28] VITALS: BP 131/86; PULSE 78; RESP 16; O2SAT 99
--- NOTE | 2023-02-27 20:39 | PC.NURSE ---
IN ROOM RESTING WITH EYES CLOSED. DENIES PAIN, SI/HI AND AVH AT THIS TIME. PT STATES I JUST WANT TO SLEEP NOT ANSWER ALL THOSE QUESTIONS. PT ROLLED OVER AND WENT BACK TO RESTING WITH EYES CLOSED. SUPPORT VOICED.
[2023-02-28 06:00] VITALS: BP 122/70; PULSE 70; RESP 16; TEMP 36.5; O2SAT 97
[2023-02-28] MEDS: citalopram 20 mg Tablet PO (08:57)
[2023-02-28] MEDS: atenolol 50 mg Tablet 25 MG PO (08:58)
[2023-02-28] MEDS: levothyroxine 25 mcg Tablet PO (08:58)
[2023-02-28 14:00] VITALS: BP 104/63; PULSE 77; RESP 16; TEMP 36.6; O2SAT 97
--- NOTE | 2023-02-28 14:35 | P.NPUPN_ITS ---
Subjective NPU 2 Subjective: 57-year-old male admitted for depression and suicidal ideation was positive for alcohol, benzodiazepines, and methamphetamine on admission. Patient had continued to complain variety of problems including pain behind his ear. He reported having pain in his back and had requested pain medications. He reported no side effects from his current medication. He reported no suicidal thoughts today. Patient continues to endorse depressed mood. He had isolated himself on the milieu. He had continued to minimize the effects of his amphetamine abuse and his hospitalization here. Mental Status Exam 2 MSE Comments: Disheveled white male who appeared older than his stated age with fleeting eye contact. He was superficially cooperative on interview. His hygiene was poor. Speech was decreased in rate and volume with some slurring of speech noted. There was evidence of mild to moderate psychomotor retardation. His thought process appeared linear today. He had endorsed suicidal ideation with no active plan. He denied any homicidal ideation. He did not appear to be responding to internal stimuli and denied any auditory or visual hallucinations. His mood was described as okay. His affect was restricted in range. His insight is feeble. His judgment is poor. His impulse control appeared limited. He was alert and oriented to person and place but not date month or year. Vitals/I&O/Wt Last Vital Signs Temp 98 F 02/28/23 14:00 Pulse 77 02/28/23 14:00 Resp 16 02/28/23 14:00 BP 104/63 02/28/23 14:00 Pulse Ox 97 02/28/23 14:00 O2 Del Method Room Air 02/28/23 14:00 Weight last 48 hrs Weight 69.853 kg Data NPU 02/26/23 01:05 02/26/23 01:05 A&P Assessment and plan (1) Depression with suicidal ideation: (2) Amphetamine abuse: (3) ETOH abuse: Plan 1. continue individual, group and milieu therapy. 2. Restart Atenolol and celexa as prescribed 3. [facility] protocol. 4. Recommend sober living treatment at the highest level of care to which the patient is willing to commit. 5. TO-15 minute checks. Involuntary Hold Information 2 96 Hour Hold: 96 Hour Involuntary Admission: No Attestations NPU 2 Medical Necessity Statement*: Inpatient hospitalization is medically necessary and deemed to be the clinically appropriate intervention at this time. The patient medications will be initiated and adjusted as clinically indicated. Patient is likely length of stay is 2-3 days. Coding Level of Care Code Acute Code for [facility] Fwd Diagnoses Depression with suicidal ideation F32.A; R45.851 Amphetamine abuse F15.10 ETOH abuse F10.10
[2023-02-28 19:48] VITALS: BP 104/62; PULSE 76; RESP 14; TEMP 36.9; O2SAT 96
[2023-03-01 06:00] VITALS: BP 100/61; PULSE 78; RESP 15; TEMP 36.5; O2SAT 97
[2023-03-01] MEDS: atenolol 50 mg Tablet 25 MG PO (08:38)
[2023-03-01] MEDS: citalopram 20 mg Tablet PO (08:39)
[2023-03-01] MEDS: levothyroxine 25 mcg Tablet PO (08:39)
[2023-03-01 14:00] VITALS: BP 112/72; PULSE 65; RESP 20; TEMP 36.8; O2SAT 98
--- NOTE | 2023-03-01 17:48 | W.PM.NPUPNS ---
Subjective NPU Subjective: 57-year-old male admitted for depression and suicidal ideation was positive for alcohol, benzodiazepines, and methamphetamine on admission. Patient appeared minimally engaged in treatment. He had continued to endorse depressed mood. He continued to spend much of the daytime in his room. He had reported a myriad of issues with his pain particularly in his lower back and reported headaches. He had not requested any pain medications today. He had reported some difficulties with sleep continuity disruption. He had endorsed that his Celexa had not been effective at that his dose to help with his depression in the past. Mental Status Exam MSE Comments: Disheveled white male who appeared older than his stated age with fleeting eye contact. He was cooperative on interview. His hygiene was poor. Speech was decreased in rate and volume with normal volume and no slurring of speech. There was evidence of mild to moderate psychomotor retardation. His thought process appeared linear today. He had endorsed suicidal ideation with no active plan. He denied any homicidal ideation. He did not appear to be responding to internal stimuli and denied any auditory or visual hallucinations. His mood was described as depressed. His affect was restricted in range. His insight is feeble. His judgment is poor. His impulse control appeared limited. He was alert and oriented to person and place and time today. Vitals/I&O/Wt Last Vital Signs Temp 98.3 F 03/01/23 14:00 Pulse 65 03/01/23 14:00 Resp 20 H 03/01/23 14:00 BP 112/72 03/01/23 14:00 Pulse Ox 98 03/01/23 14:00 O2 Del Method Room Air 03/01/23 14:00 Weight last 48 hrs Weight 69.853 kg Data NPU 02/26/23 01:05 02/26/23 01:05 A&P Assessment and plan (1) Depression with suicidal ideation: (2) Amphetamine abuse: (3) ETOH abuse: Plan 1. continue individual, group and milieu therapy. 2. Restart Atenolol and increase celexa to 30mg daily 3. [facility] protocol. 4. Recommend sober living treatment at the highest level of care to which the patient is willing to commit. 5. TO-15 minute checks. Involuntary Hold Information 96 Hour Hold: 96 Hour Involuntary Admission: No Attestations NPU Medical Necessity Statement*: Inpatient hospitalization is medically necessary and deemed to be the clinically appropriate intervention at this time. The patient medications will be initiated and adjusted as clinically indicated. Patient is likely length of stay is 3-4 days. Coding Level of Care Code Acute Code for [facility] Fwd Diagnoses Depression with suicidal ideation F32.A; R45.851 Amphetamine abuse F15.10 ETOH abuse F10.10
[2023-03-01 19:49] VITALS: BP 95/59; PULSE 74; RESP 16; TEMP 36.8; O2SAT 98
[2023-03-02 06:00] VITALS: BP 100/62; PULSE 74; RESP 15; TEMP 36.7; O2SAT 98
[2023-03-02] MEDS: citalopram 20 mg Tablet 30 MG PO (08:06)
[2023-03-02] MEDS: levothyroxine 25 mcg Tablet PO (08:06)
[2023-03-02] MEDS: acetaminophen 325 mg Tablet 650 MG PO (08:12)
[2023-03-02 14:00] VITALS: BP 113/68; PULSE 71; RESP 13; TEMP 36.9; O2SAT 99
--- NOTE | 2023-03-02 16:15 | P.NPUPN_ITS ---
Subjective NPU 2 Subjective: 57-year-old male admitted for depression and suicidal ideation was positive for alcohol, benzodiazepines, and methamphetamine on admission. Patient described his mood is a little better today. He continued to isolate himself on the milieu and spend most of the day in bed resting. He had reported that this was a typical pattern for him after he had used methamphetamines. He reported no recent history of alcohol withdrawal. He continued to report headaches and back pain. He did not continue to show little motivation for attending groups. He continued to continue to struggle with completion of activities of daily living. He reported no feelings of hopelessness or worthlessness. Mental Status Exam 2 MSE Comments: Disheveled, disinterested, white male who appeared older than his stated age with fleeting eye contact. He was cooperative on interview. His hygiene was poor. Speech was decreased in rate and volume with normal volume and no slurring of speech. There was evidence of mild to moderate psychomotor retardation. His thought process appeared linear today. He had endorsed no suicidal ideation with no active plan. He denied any homicidal ideation. He did not appear to be responding to internal stimuli and denied any auditory or visual hallucinations. His mood was described as a little better. His affect was flat. His insight is feeble. His judgment is poor. His impulse control appeared limited. He was alert and oriented to person and place and time. Vitals/I&O/Wt Last Vital Signs Temp 98.4 F 03/02/23 14:00 Pulse 71 03/02/23 14:00 Resp 13 03/02/23 14:00 BP 113/68 03/02/23 14:00 Pulse Ox 99 03/02/23 14:00 O2 Del Method Room Air 03/02/23 06:00 Data NPU 02/26/23 01:05 02/26/23 01:05 A&P Assessment and plan (1) Depression with suicidal ideation: (2) Amphetamine abuse: (3) ETOH abuse: Plan 1. continue individual, group and milieu therapy. 2. Restart Atenolol and continue celexa to 30mg daily 3. [facility] protocol. 4. Recommend sober living treatment at the highest level of care to which the patient is willing to commit. 5. TO-15 minute checks. Involuntary Hold Information 2 96 Hour Hold: 96 Hour Involuntary Admission: No Attestations NPU 2 Medical Necessity Statement*: Inpatient hospitalization is medically necessary and deemed to be the clinically appropriate intervention at this time. The patient medications will be initiated and adjusted as clinically indicated. Patient likely length of stay is 3-4 days. Coding Level of Care Code Acute Code for g Fwd Diagnoses Depression with suicidal ideation F32.A; R45.851 Amphetamine abuse F15.10 ETOH abuse F10.10
[2023-03-02 19:51] VITALS: BP 90/64; PULSE 82; RESP 16; TEMP 36.6; O2SAT 97
[2023-03-03 06:00] VITALS: BP 108/65; PULSE 90; RESP 15; O2SAT 98
[2023-03-03] MEDS: levothyroxine 25 mcg Tablet PO (09:03)
[2023-03-03] MEDS: citalopram 20 mg Tablet 30 MG PO (09:03)
[2023-03-03] MEDS: atenolol 50 mg Tablet 25 MG PO (09:04)
[2023-03-03] MEDS: nicotine 21 mg Patch 1 PATCH TRANSDERMA (13:37)
[2023-03-03 14:00] VITALS: BP 104/66; PULSE 63; RESP 16; TEMP 36.9; O2SAT 100
--- NOTE | 2023-03-03 16:02 | P.NPUPN_ITS ---
Subjective NPU 2 Subjective: 57-year-old male admitted for depression and suicidal ideation was positive for alcohol, benzodiazepines, and methamphetamine on admission. Patient reported no psychotic symptoms at this time. He reported that his mood was getting better. He had stated that he had hoped to find a place to live as he had been homeless for several months. He was agreeable to follow-up but did not wish to have any substance abuse rehabilitation services at this time. He had continued to complain of mild headaches. He continued to isolate himself on the milieu but appeared more engaged in self-care including showering and brushing his teeth. Mental Status Exam 2 MSE Comments: Disheveled, white male who appeared older than his stated age with fleeting eye contact and some improving hygiene. He was cooperative on interview. Speech was more productive with increase in rate and volume with normal volume . There was evidence of mild psychomotor retardation. His thought process appeared linear today. He had endorsed no suicidal ideation with no active plan. He denied any homicidal ideation. He did not appear to be responding to internal stimuli and denied any auditory or visual hallucinations. His mood was described as a little better. His affect was flat. His insight is improving. His judgment is poor. His impulse control appeared limited. He was alert and oriented to person, place and time. Vitals/I&O/Wt Last Vital Signs Temp 98.4 F 03/03/23 14:00 Pulse 63 03/03/23 14:00 Resp 16 03/03/23 14:00 BP 104/66 03/03/23 14:00 Pulse Ox 100 03/03/23 14:00 O2 Del Method Room Air 03/03/23 06:00 Data NPU 02/26/23 01:05 02/26/23 01:05 A&P Assessment and plan (1) Depression with suicidal ideation: (2) Amphetamine abuse: (3) ETOH abuse: Plan 1. continue individual, group and milieu therapy. 2. Restart Atenolol and increase celexa to 40mg daily 3. CIWA protocol. 4. Recommend sober living treatment at the highest level of care to which the patient is willing to commit. 5. TO-15 minute checks. Involuntary Hold Information 2 96 Hour Hold: 96 Hour Involuntary Admission: No Attestations NPU 2 Medical Necessity Statement*: Inpatient hospitalization is medically necessary and deemed to be the clinically appropriate intervention at this time. The patient medications will be initiated and adjusted as clinically indicated. Patient likely length of stay is 1-2 days. Coding Level of Care Code Acute Code for [facility] Fwd Diagnoses Depression with suicidal ideation F32.A; R45.851 Amphetamine abuse F15.10 ETOH abuse F10.10
--- NOTE | 2023-03-03 20:30 | PC.NURSE ---
IN BED RESTING AROUSES TO VOICE. DENIES PAIN, SI/HI AND AVH AT THIS TIME. PT RATES ANXIETY AND DEPRESSION 0/10. PT THEN ROLLED OVER AND WENT BACK TO RESTING.
[2023-03-03 20:48] VITALS: BP 112/68; PULSE 75; RESP 17; TEMP 37.1; O2SAT 98
[2023-03-04 06:00] VITALS: RESP 16
[2023-03-04 08:06] VITALS: BP 112/68; PULSE 75; RESP 16; TEMP 37.1; O2SAT 98
--- NOTE | 2023-03-04 08:23 | DCPLANNER ---
IMM completed 03/04/23 @ 4196 and copy of rights given to pt.
[2023-03-04] MEDS: levothyroxine 25 mcg Tablet PO (08:45)
[2023-03-04] MEDS: atenolol 50 mg Tablet 25 MG PO (08:45)
[2023-03-04] MEDS: citalopram 20 mg Tablet 40 MG PO (08:45)
--- NOTE | 2023-03-04 13:14 | W.PM.NPUDCS ---
Diagnoses at Discharge Discharge Diagnosis (1) Depression with suicidal ideation: Status: Acute (2) Amphetamine abuse: Status: Acute (3) ETOH abuse: Status: Acute Reason for Visit Reason for Visit: damian driver wants to admit self Brief History: History of Present Illness Alex Tse is a 57 year old male who presented the emergency department with the following report: Chief Complaint: Psychiatric Symptoms Stated Complaint: damian driver wants to admit self Time Seen by Provider: 02/26/23 00:40 History of Present Illness: 57-year-old male presents to the emergency department with statements that he feels extremely depressed and feels like he has no way out except for committing suicide. He states that he is talked to his primary care provider and was advised to come to the emergency department to be evaluated. He states that he is going to use a gun on himself and he does have access to a gun. He states that he has had increased significant life stressors to include being homeless, not being able to work, getting from his and is not able to see his grandkids. Associated symptoms: Reports depression and suicidal ideation Admitted to the neuropsychiatric unit for definitive treatment of those issues. He presented today very lethargic. Today BAL of 29 and his UDS has not been obtained at this point. Discussed getting a UDS with him and treatment team. Reports a possible stimulant/methamphetamine use in addition to the alcohol use. Multiple attempts made to engage and attempt to keep him awake with no real success. Most of the information here is obtained from review of current records. An excerpt of his interaction with crisis stabilization is included below for recent history. Only noteworthy mental health care and system is back in January 2011 through August 2011 he did get outpatient treatment at [facility]. Otherwise appears that recent stressors have led to him coming here and active addiction has led to his current presentation and he did report suicidality to emergency room staff. We discussed Dr. Bernard being here tomorrow to attempt to get better history. Per his 11/19/2022 crisis stabilization center notes: Case management: Current Presentation: Client appeared anxious throughout encounter. unkempt, rapid speech and motor activity. Euphoric affect, Tangential thought process. Intervention: Client came in seeking housing. Client indicated he has recently became homeless and does not have a place to go. Upon entry assessment, client indicated he had thoughts of harming someone else. CSS spoke with client concerning these thoughts. Client noted he was angry, but did not want to get in trouble or act upon his feelings. CSS deferred to [facility] to assess for SI. Upon further assessment, client agreed he would not act on these feelings and was more just frustrated and angry. Client agreed to complete and follow safety plan in collaboration with the CSS. Client indicated some positive coping mechanisms include enjoying nature alone, swimming, fishing, and shooting pool. Client has support systems including step daughter, ex , and his religion. Client attributes his spirituality to be a major component of his life. Client does have medicare and medicaid. Client does have limited income and draws an SSI check. Client states he has been diagnosed with bipolar but has not taken medication for the last 10 months. Client states he has not been sleeping well, only for 2 hours a night. I am easy to anger and like I am walking on eggshells. Client also said it feels like his brain wont shut off . Client has extensive history of trauma involving of family/friends in which he witnessed firsthand. Client was not interested in receiving services through [facility] at this time. Client indicated he does not have any substance use aside from alcohol, which he stated he doesn't drink to get drunk, just a few beers here and there . Client stated he has used Methamphetamine in the past, but not within the last 10 years. Client says he has many physical ailments making it difficult to perform daily functions and cause him great distress. Client was provided with snack, water, a shower, clothing, and personal hygiene products. Client was also provided a [email or web address] backpack. Return plan was established to follow up with potential housing resources and creating stability goals. Client Response: Client was appreciative of services. Client Barriers: unhoused, mental health, substance use, manic state. Outcome of Encounter: Client left facility and indicated he would return the following day. Current SI: None Current HI: None Therapy note: Current Presentation: [facility] met with Alex due to his initial presentation of agitation and verbalization of wanting to harm his prior roommates. Alex vents about his current living situation and recent escalation between him and his roommates. He reports they have kicked me out and stole my stuff . He is concerned about not being able to take back possession of his belongings and having to start all over . Intervention: AGED OR DISABLED CARE WORKER assessed for safety issues. Alex does verbalize thoughts of throwing them (roommates) out the window ; however, upon further assessment of HI he states i would not do that, i plan to go to the police department after here and see what i got to do to get my stuff back . He reports he is struggling with appropriate anger emotions related to these recent events and HI has crossed his mind; however, denies any intent to act on this. He recognizes he would not want to suffer the consequences of harming someone. Alex does report he has a place to stay, although it is not very comfortable. AGED OR DISABLED CARE WORKER educated Alex on [facility] services and encouraged he continue to engage with [facility] staff in order to help address his current stability issues. Client Response to Intervention: Although Alex remained in a somewhat manic state throughout the interview, his behavior turned more positive and thanked this [facility] staff multiple times after hearing how [facility] serviecs could be beneficial to him. He agrees to create a safety plan with [facility] staff Narcisa Sheehan before leaving today. He will reach out to [facility] staff should his HI escalate to a dangerous level. Final Disposition: Alex will create a safety plan with [facility] staff Narcisa Sheehan. Alex will follow back up with [facility] staff regarding working on his stability needs. Current SI: None Current HI: Homicidal Thoughts/Behave (safety plan was completed by Narcisa Sheehan, [facility] Client business support liaison. Hospital Course Hospital Course During the hospitalization, the patient had routine laboratory studies which were within normal limits except for a few outliers.? Additionally, there was a general medical evaluation which was also within normal limits and revealed no new acute processes.? At the time of discharge, lethality was denied and psychosis was resolving.? Mood and anxiety were well managed.? The patient endorsed a plan to avoid all drugs of abuse and follow up with the aftercare recommendations of the treatment team.? The patient was evaluated and deemed to be absent credible lethality and had achieved the maximum benefit from an inpatient hospitalization, and so was discharged.? Patient was restarted on celexa and it was increased to a a dose of 40mg daily with improved energy, mood and motivation at discharge. Involuntary Hold Information 96 Hour Hold: 96 Hour Involuntary Admission: No Mental Status Exam MSE Comments: white male who appeared older than his stated age with fleeting eye contact and some improving hygiene. He was cooperative on interview. Speech was more productive with increase in rate and volume with normal volume . There was continued evidence of mild psychomotor retardation. His thought process appeared linear today. He had endorsed no suicidal ideation with no active plan. He denied any homicidal ideation. He did not appear to be responding to internal stimuli and denied any auditory or visual hallucinations. His mood was described as good. His affect was less restricted. His insight is improving. His judgment is adequate. His impulse control appeared limited. He was alert and oriented to person, place and time. His recent and remote memory were grossly intact. Discharge Data Studies Completed and Pending: Laboratory Results WBC 6.41 10^3/uL (3.2 9-11.43) 02/26/23 01:05 RBC 4.25 10^6/uL (3.8 5-5.65) 02/26/23 01:05 Hgb 13.10 g/dL (11.27 -16.99) 02/26/23 01:05 Hct 39.0 % (37-53) 02/26/23 01:05 MCV 91.8 fl (82-101) 02/26/23 01:05 MCH 30.8 pg (27-33) 02/26/23 01:05 MCHC 33.6 g/dL (30-55) 02/26/23 01:05 RDW 13.2 % (12.1-15.1 ) 02/26/23 01:05 Plt Count 227 10^3/cmm (157 -399) 02/26/23 01:05 MPV 8.9 fL (7.4-10.4) 02/26/23 01:05 Neut % (Auto) 45.8 % 02/26/23 01:05 Lymph % (Auto) 38.2 % 02/26/23 01:05 [place] % (Auto) 8.0 % 02/26/23 01:05 Eos % (Auto) 7.2 % 02/26/23 01:05 Baso % (Auto) 0.5 % 02/26/23 01:05 Neut # (Auto) 2.94 10^3/uL (1.8 -7.7) 02/26/23 01:05 Lymph # (Auto) 2.5 10^3/uL (0.8- 4.8) 02/26/23 01:05 [place] # (Auto) 0.5 10^3/uL (0.2- 0.9) 02/26/23 01:05 Eos # (Auto) 0.5 10^3/uL (0.0- 0.8) 02/26/23 01:05 Baso # (Auto) 0.0 10^3/uL (0.0- 0.1) 02/26/23 01:05 Nucleated RBC % (a uto) 0 % 02/26/23 01:05 Nucleated RBCs # 0.0 /100WBC 02/26/23 01:05 Sodium 139 mmol/L (136-1 45) 02/26/23 01:05 Potassium 3.7 mmol/L (3.5-5 .1) 02/26/23 01:05 Chloride 104 mmol/L (98-10 7) 02/26/23 01:05 Carbon Dioxide 26 mmol/L (22-29) 02/26/23 01:05 Anion Gap 12.7 (5-19) 02/26/23 01:05 BUN 16 mg/dL (6-20) 02/26/23 01:05 Creatinine 0.8 mg/dL (0.7-1. 2) 02/26/23 01:05 GFR Calculation 100.0 mL/min (90- 130) 02/26/23 01:05 Glucose 68 mg/dL (65-115) 02/26/23 01:05 Calculated Osmolal ity 287 mOsm/kg (285- 295) 02/26/23 01:05 Calcium 9.4 mg/dL (8.5-10 .5) 02/26/23 01:05 Total Bilirubin 0.3 mg/dL (0.15-1 .2) 02/26/23 01:05 AST 19 U/L (0-40) 02/26/23 01:05 ALT 15 U/L (0-41) 02/26/23 01:05 Alkaline Phosphata se 98 U/L (40-130) 02/26/23 01:05 Total Protein 6.5 g/dL (6.6-8.7 ) L 02/26/23 01:05 Albumin 3.9 g/dL (3.5-5.2 ) 02/26/23 01:05 Globulin 2.6 g/dL (1.3-4.6 ) 02/26/23 01:05 Urine Color Dark yellow (Yel low) 02/27/23 08:59 Urine Appearance Clear (CLEAR) 02/27/23 08:59 Urine pH 5 (5-7) 02/27/23 08:59 Ur Specific Gravit y 1.025 (1.005-1.0 30) 02/27/23 08:59 Urine Protein Neg (Negative) 02/27/23 08:59 Urine Glucose (UA) Norm (Normal) 02/27/23 08:59 Urine Ketones Negative (Negati ve) 02/27/23 08:59 Urine Blood Neg (Negative) 02/27/23 08:59 Urine Nitrate Negative (Negati ve) 02/27/23 08:59 Urine Bilirubin Neg (Negative) 02/27/23 08:59 Urine Urobilinogen Norm mg/dL (Negat rufina) 02/27/23 08:59 Ur Leukocyte June ase Negative (Negati ve) 02/27/23 08:59 Salicylates < 0.3 mg/dL (3-10 ) L 02/26/23 01:05 Urine Opiates Scre en Negative ng/mL (N egative) 02/27/23 08:59 Acetaminophen < 5.0 ug/mL (10-3 0) L 02/26/23 01:05 Ur Barbiturates Sc reen Negative ng/mL (N egative) 02/27/23 08:59 Ur Phencyclidine S crn Negative ng/mL (N egative) 02/27/23 08:59 Ur Amphetamines Sc reen Positive ng/mL (N egative) H 02/27/23 08:59 U Benzodiazepines Scrn Positive ng/mL (N egative) H 02/27/23 08:59 Urine Cocaine Scre en Negative ng/mL (N egative) 02/27/23 08:59 U Marijuana (THC) Screen Positive ng/mL (N egative) H 02/27/23 08:59 Ethyl Alcohol 29 mg/dL (0-10) H 02/26/23 01:05 Vitals: Last Vital Signs Temp 98.7 F 03/04/23 08:06 Pulse 75 03/04/23 08:06 Resp 16 03/04/23 08:06 BP 112/68 03/04/23 08:06 Pulse Ox 98 03/04/23 08:06 O2 Del Method Room Air 03/03/23 20:48 Discharge Plan Discharge Patient Disposition: Home Condition: Stable Prescriptions: New citalopram 20 mg Tablet 40 mg PO DAILY 30 Days Qty: 60 1RF Continued atenolol 25 mg tablet 25 mg PO DAILY 30 Days Qty: 30 1RF Rx Instructions: take 1 PO daily levothyroxine 25 mcg tablet 25 mcg PO DAILY 30 Days Qty: 30 1RF Discontinued citalopram 20 mg tablet 20 mg PO DAILY Qty: 30 6RF Discharge Orders: Discharge Order (Routine); Ordered 03/04/23 Ordered By: Navneet Bernard [facility]Other[facility] - 03/23/23 11:30 am (Appointment for services with Bev Lundberg) Catracho Mix MD [Primary Care Provider] - Discharge Diet: Usual diet Discharge Activity: Resume usual activity Patient Instructions: Citalopram (By mouth), Methamphetamine Use Disorder (DC), Suicide Prevention (DC), Opioid Safety Discharge Attestations NPU Time Spent in Discharge Care*: less than 30 min Specific Discharge Activities: Specific discharge activities: educating patient and evaluating patient/reviewing data Coding Level of Care Code Acute Code for [facility] Fwd Diagnoses Depression with suicidal ideation F32.A; R45.851 Amphetamine abuse F15.10 ETOH abuse F10.10
== END 2023-03-04 09:03 | disposition home or self-care (01) | DRG 881 ==
LOC: ER 01:19 → NP 02:09
PROVIDERS: Admitting Provider Psychiatry & Neurology Psychiatry; Emergency Provider Internal Medicine; PCP Family Medicine; Visit Provider Psychiatry & Neurology Psychiatry
DX: F32.A Depression, unspecified (principal); R45.851 Suicidal ideations; Z59.00 Homelessness unspecified; I10 Essential (primary) hypertension; F17.210 Nicotine dependence, cigarettes, uncomplicated; F15.10 Other stimulant abuse, uncomplicated; F10.10 Alcohol abuse, uncomplicated
CPT/HCPCS: 80053; 80306; 80307; 81003; 85025; 93005; 97165; 99285

== ENCOUNTER 2023-10-07 23:05 | Inpatient (IN) | payer MEDICARE, MEDICAID, SELFPAY ==
[2023-10-07 23:10] VITALS: BP 119/64; PULSE 78; RESP 16; TEMP 37.1; O2SAT 97
--- NOTE | 2023-10-07 23:30 | PC.NURSE ---
Pt. was asked to leave out patient surgery area, while friends that were with him were also asked to leave hospital grounds and stop sleeping on the lawn. Pt. went around and checked into ER to be seen .
--- NOTE | 2023-10-07 23:58 | ECG_ITS ---
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 Measurements Intervals [place] Rate: 73 P: 82 [place]: 180 QRS: 78 QRSD: 97 T: 75 QT: 364 QTc: 402 Interpretive Statements SINUS RHYTHM Compared to ECG 02/26/2023 01:03:26 Early repolarization changes in the inferior and anterolateral leads ST (T wave) deviation no longer present Early repolarization no longer present Electronically Signed On 10-08-2023 1:01:35 CDT by Yocasta Alvarez M.D. [id number]
[2023-10-08 00:25] LABS: Basophils % 0.4 %; Eosinophils # 0.4 10^3/uL (0.0-0.8); Eosinophils % 5.4 %; Hematocrit 36.1 % (37-53); Lymphocytes # 2.5 10^3/uL (0.8-4.8); Lymphocytes % 37.2 %; Mean Corpuscular HGB Conc 33.5 g/dL (30-55); Mean Corpuscular Hemoglobin 31.2 pg (27-33); Mean Platelet Volume 9.6 fL (7.4-10.4); Monocytes # 0.6 10^3/uL (0.2-0.9); Monocytes % 8.8 %; Neutrophils # 3.21 10^3/uL (1.8-7.7); Neutrophils % 48.1 %; Nucleated Red Blood Cells % 0 %; Platelet Count 211 10^3/cmm (157-399); Red Blood Count 3.88 10^6/uL (3.85-5.65); White Blood Count 6.69 10^3/uL (3.29-11.43)
[2023-10-08 00:58] LABS: Alanine Aminotransferase 19 U/L (0-41); Albumin Level 3.9 g/dL (3.5-5.2); Alkaline Phosphatase 84 U/L (40-130); Anion Gap 12.2 (5-19); Aspartate Amino Transferase 20 U/L (0-40); Blood Urea Nitrogen 13 mg/dL (6-20); Calcium 8.9 mg/dL (8.5-10.5); Carbon Dioxide 30 mmol/L (22-29); Chloride 105 mmol/L (98-107); Creatinine Clr Calc Pharmacy 77.8522; Globulin 2.6 g/dL (1.3-4.6); Glucose 70 mg/dL (65-115); Osmolality Calculated 295 mOsm/kg (285-295); Potassium 4.2 mmol/L (3.5-5.1); Sodium 143 mmol/L (136-145); Thyroid Stimulating Hormone 5.49 uIU/mL (0.27-4.20); Total Bilirubin 0.2 mg/dL (0.15-1.2); Total Protein 6.5 g/dL (6.6-8.7)
[2023-10-08 01:00] LABS: Acetaminophen < 5.0 ug/mL (10-30); Alcohol Level < 10 mg/dL (0-10); Salicylate < 0.3 mg/dL (3-10)
[2023-10-08 01:14] LABS: Add Urine Microscopic? NO; Charge for UA Resulting for Rev
--- NOTE | 2023-10-08 01:22 | W.ED.PSYCHS ---
HPI - Psych General: Chief Complaint: Psychiatric Symptoms Stated Complaint: pain in neck Time Seen by Provider: 10/07/23 23:44 History of Present Illness: Patient presents to the ER reporting that he wants to end his life. He does not have anywhere to go rough and it was helping him just dropped him off and has not returned to get him. Patient is post to go to rehab in [place] on Wednesday for math but is now homeless and he says he just wants to end it all. Review of Systems General: Reports: 10 or more systems reviewed and unremarkable except in HPI and below PFSH ED PFSH: Medical History Psychiatric care HTN (hypertension) Tobacco abuse Surgical History History of right knee surgery Right ACL - 10/1999 History of shoulder surgery Right shoulder 07/2014 - Dr Paredes Family History Mother Blood clot in vein Social History Smoking and tobacco/nicotine status: current every day tobacco/nicotine user cigarettes Packs smoked per day: 1 Years cigarettes smoked: 36 Alcohol intake: current Alcohol intake frequency: few times a week Substance/Drug Use: former Date of last use: 01/2022 Caregiver/support person: No Lives independently: Yes Household members: none Housing: House Physical Exam Const: COMMON NORMALS: no acute distress, average body habitus, patient oriented x3, no limitations, healthy appearing, alert and well nourished HENMT: COMMON NORMALS: normocephalic, atraumatic, hearing grossly normal bilaterally, external ears normal, Normal external nose present and moist oral mucous membranes HEAD & SCALP: normocephalic and atraumatic NOSE: Normal external nose present EXTERNAL EAR: Yes external ears normal Neck/C-Spine: COMMON NORMALS: no JVD Chest: COMMONS NORMALS: normal inspection of the chest and normal palpation of entire chest wall Resp: COMMON NORMALS: normal respiratory effort, No retractions, No use of accessory muscles and clear to auscultation bilaterally AUSCULTATION: clear to auscultation bilaterally Cardio: COMMON NORMALS: no JVD, regular rate, regular rhythm, S1 normal heart sound present, S2 normal heart sound present, No gallops present (Cardio), No clicks present (Cardio), No murmurs present (Cardio) and No rub (Cardio) RATE: regular rate RHYTHM: regular rhythm HEART SOUNDS: S1 normal heart sound present and S2 normal heart sound present GI: COMMON NORMALS: Normal to inspection, nondistended, normoactive bowel sounds present, Soft to palpation, non-tender, No hepatosplenomegaly present and no masses PALPATION: Yes Soft to palpation and Yes No hepatosplenomegaly present Neuro: COMMON NORMALS: patient oriented x3 SENSORIUM/ORIENTATION: Yes alert Course Vital Signs: Vital signs: Vital Signs Temperature 97.9 F 10/08/23 04:00 Pulse Rate 77 10/08/23 04:00 Respiratory Rate 16 10/08/23 04:00 Blood Pressure 63/45 10/08/23 04:00 Pulse Oximetry 98 10/08/23 04:00 Oxygen Delivery Me thod Room Air 10/08/23 04:00 [facility] - Psych Medical Decision Making Medical clearance will be obtained once medical clearance is obtained patient will be discussed with Dr. Romero, Dr. Romero accepted the patient for MPU for further evaluation and treatment. Lab Data 10/07/23 00:00 10/07/23 00:00 Laboratory Results WBC 6.69 10^3/uL (3.29-11.43) 10/07/23 00:00 RBC 3.88 10^6/uL (3.85-5.65) 10/07/23 00:00 Hgb 12.10 g/dL (11.27-16.99) 10/07/23 00:00 Hct 36.1 % (37-53) L 10/07/23 00:00 MCV 93.0 fl (82-101) 10/07/23 00:00 MCH 31.2 pg (27-33) 10/07/23 00:00 MCHC 33.5 g/dL (30-55) 10/07/23 00:00 RDW 14.0 % (12.1-15.1) 10/07/23 00:00 Plt Count 211 10^3/cmm (157-399) 10/07/23 00:00 MPV 9.6 fL (7.4-10.4) 10/07/23 00:00 Neut % (Auto) 48.1 % 10/07/23 00:00 Lymph % (Auto) 37.2 % 10/07/23 00:00 [place] % (Auto) 8.8 % 10/07/23 00:00 Eos % (Auto) 5.4 % 10/07/23 00:00 Baso % (Auto) 0.4 % 10/07/23 00:00 Neut # (Auto) 3.21 10^3/uL (1.8-7.7) 10/07/23 00:00 Lymph # (Auto) 2.5 10^3/uL (0.8-4.8) 10/07/23 00:00 [place] # (Auto) 0.6 10^3/uL (0.2-0.9) 10/07/23 00:00 Eos # (Auto) 0.4 10^3/uL (0.0-0.8) 10/07/23 00:00 Baso # (Auto) 0.0 10^3/uL (0.0-0.1) 10/07/23 00:00 Nucleated RBC % (auto) 0 % 10/07/23 00:00 Nucleated RBCs # 0.0 /100WBC 10/07/23 00:00 Sodium 143 mmol/L (136-145) 10/07/23 00:00 Potassium 4.2 mmol/L (3.5-5.1) 10/07/23 00:00 Chloride 105 mmol/L (98-107) 10/07/23 00:00 Carbon Dioxide 30 mmol/L (22-29) H 10/07/23 00:00 Anion Gap 12.2 (5-19) 10/07/23 00:00 BUN 13 mg/dL (6-20) 10/07/23 00:00 Creatinine 0.9 mg/dL (0.7-1.2) 10/07/23 00:00 GFR Calculation 87.0 mL/min (90-130) L 10/07/23 00:00 Glucose 70 mg/dL (65-115) 10/07/23 00:00 Calculated Osmolality 295 mOsm/kg (285-295) 10/07/23 00:00 Calcium 8.9 mg/dL (8.5-10.5) 10/07/23 00:00 Total Bilirubin 0.2 mg/dL (0.15-1.2) 10/07/23 00:00 AST 20 U/L (0-40) 10/07/23 00:00 ALT 19 U/L (0-41) 10/07/23 00:00 Alkaline Phosphatase 84 U/L (40-130) 10/07/23 00:00 Total Protein 6.5 g/dL (6.6-8.7) L 10/07/23 00:00 Albumin 3.9 g/dL (3.5-5.2) 10/07/23 00:00 Globulin 2.6 g/dL (1.3-4.6) 10/07/23 00:00 TSH 5.49 uIU/mL (0.27-4.20) H 10/07/23 00:00 Urine Color Yellow (Yellow) 10/08/23 01:02 Urine Appearance Clear (CLEAR) 10/08/23 01:02 Urine pH 6.5 (5-7) 10/08/23 01:02 Ur Specific [place] 1.015 (1.005-1.030) 10/08/23 01:02 Urine Protein Neg (Negative) 10/08/23 01:02 Urine Glucose (UA) Norm (Normal) 10/08/23 01:02 Urine Ketones Negative (Negative) 10/08/23 01:02 Urine Blood Neg (Negative) 10/08/23 01:02 Urine Nitrate Negative (Negative) 10/08/23 01:02 Urine Bilirubin Neg (Negative) 10/08/23 01:02 Urine Urobilinogen 1 mg/dL (Negative) H 10/08/23 01:02 Ur Leukocyte Esterase Negative (Negative) 10/08/23 01:02 Salicylates < 0.3 mg/dL (3-10) L 10/07/23 00:00 Urine Opiates Screen Negative ng/mL (Negative) 10/08/23 01:02 Acetaminophen < 5.0 ug/mL (10-30) L 10/07/23 00:00 Ur Barbiturates Screen Negative ng/mL (Negative) 10/08/23 01:02 Ur Phencyclidine Scrn Negative ng/mL (Negative) 10/08/23 01:02 Ur Amphetamines Screen Positive ng/mL (Negative) H 10/08/23 01:02 U Benzodiazepines Scrn Negative ng/mL (Negative) 10/08/23 01:02 Urine Cocaine Screen Negative ng/mL (Negative) 10/08/23 01:02 U Marijuana (THC) Screen Positive ng/mL (Negative) H 10/08/23 01:02 Ethyl Alcohol < 10 mg/dL (0-10) 10/07/23 00:00 All radiology interpretation(s) finalized by discharge Discharge Plan Discharge Patient Disposition: Admitted As Inpatient Admit Provider: Miller Romero Clinical Impression: Suicidal ideation, Polysubstance abuse Condition: Stable Coding Level of Care Code ED Beef Pluck Trimmer for Rochelle Pichardo
[2023-10-08 01:26] LABS: Amphetamines Screen Urine Positive (Negative); Barbiturates Screen Urine Negative (Negative); Benzodiazepines Screen Urine Negative (Negative); Cocaine Screen Urine Negative (Negative); Opiate Screen Urine Negative (Negative); PCP Screen Urine Negative (Negative); THC Screen Urine Positive (Negative)
[2023-10-08 01:38] LABS: Urine Appearance Clear (CLEAR); Urine Color Yellow (Yellow)
[2023-10-08 01:39] LABS: Bilirubin Urine Neg (Negative); Blood Urine Neg (Negative); Glucose Urine UA Norm (Normal); Ketones Urine Negative (Negative); Leukocyte Esterase Urine Negative (Negative); Nitrate Urine Negative (Negative); Protein Urine Neg (Negative); Specific Gravity, Urine 1.015 (1.005-1.030); Urobilinogen Urine 1 mg/dL (Negative); pH Urine 6.5 (5-7)
--- NOTE | 2023-10-08 02:32 | PC.NURSE ---
Patient dressed out of regular clothing and put in green psych scrubs. All belongings removed and placed in labeled bags.
--- NOTE | 2023-10-08 03:19 | PC.NURSE ---
Report called to Nic ALONSO in NPU; all questions and concerns addressed at time of report.
[2023-10-08 04:00] VITALS: BP 63/45; PULSE 77; RESP 16; TEMP 36.6; O2SAT 98
[2023-10-08] MEDS: ibuprofen 600 mg Tablet PO (05:11)
[2023-10-08 06:00] VITALS: BP 109/61; PULSE 68; RESP 15; TEMP 36.8; O2SAT 97
--- NOTE | 2023-10-08 07:09 | P.NPUHP_ITS ---
Providers/Chief Complaint 2 Admitting Physician: Miller Romero MD Primary Care Provider: Catracho Mix MD Chief Complaint: pain in neck dizzy feels like pass out HPI NPU History of Present Illness Alex Tse is a 58 year old male who presented to the emergency department with the following report: Chief Complaint: Psychiatric Symptoms Stated Complaint: pain in neck Time Seen by Provider: 10/07/23 23:44 History of Present Illness: Patient presents to the ER reporting that he wants to end his life. He does not have anywhere to go rough and it was helping him just dropped him off and has not returned to get him. Patient is post to go to rehab in [place] on Wednesday for math but is now homeless and he says he just wants to end it all. He was admitted to the neuropsychiatric unit for definitive treatment of those issues. He is known to [facility] through inpatient and outpatient services and his last hospitalization was last year. An excerpt of his March 04, 2023 discharge summary is included below for context. He presents today reporting: Chief complaint The patient expressed distress over being left alone for extended periods, specifically mentioning an instance of being left at a location for 11 hours. The patient also reported struggling with addiction, specifically methamphetamine, for the past three months. History of the present complaint The patient, who was last seen in 2022, has been struggling with a methamphetamine addiction for an extended period. The addiction has been particularly severe for the past three months. The patient is currently enrolled in [facility] ([facility]) and is planning to enter a long-term sober living facility on the upcoming Wednesday. The patient has been living with a female individual for about four months, but this arrangement has ended, which has caused some distress. The patient is currently not working and is on disability. Despite being connected with services, the patient continues to struggle with addiction. The patient has previously been prescribed medication for blood pressure but is not currently on any psychiatric medication. The patient has not found any medication effective for their addiction in the past. The patient's plan is to continue without medication for now, but there is a possibility of restarting a previously prescribed medication. The patient's care team will be contacted regarding the upcoming stay at the sober living facility. We discussed the risks, benefits and alternatives of restarting his medication including Celexa for depression and anxiety and Synthroid and atenolol and he understood and agreed to proceed as is documented in this note. Mental health history The patient has a history of psychiatric consultations, with the last one being in 2022. The patient is currently enrolled in [facility] ([facility]) and has been struggling with addiction. There is no history of psychiatric medication use. Social history The patient has been living with a female weatherization administrator for four months but is no longer staying with her. The patient is currently unemployed and on disability. The patient has a history of methamphetamine use and is currently struggling with addiction. Per his 03/04/2023 [facility] inpatient psychiatric discharge summary: Discharge Diagnosis (1) Depression with suicidal ideation: Status: Acute (2) Amphetamine abuse: Status: Acute (3) ETOH abuse: Status: Acute Reason for Visit Reason for Visit: damian cobianagnes wants to admit self Brief History: History of Present Illness Alex Tse is a 57 year old male who presented the emergency department with the following report: Chief Complaint: Psychiatric Symptoms Stated Complaint: damian driver wants to admit self Time Seen by Provider: 02/26/23 00:40 History of Present Illness: 57-year-old male presents to the emergency department with statements that he feels extremely depressed and feels like he has no way out except for committing suicide. He states that he is talked to his primary care provider and was advised to come to the emergency department to be evaluated. He states that he is going to use a gun on himself and he does have access to a gun. He states that he has had increased significant life stressors to include being homeless, not being able to work, getting from his and is not able to see his grandkids. Associated symptoms: Reports depression and suicidal ideation Admitted to the neuropsychiatric unit for definitive treatment of those issues. He presented today very lethargic. Today BAL of 29 and his UDS has not been obtained at this point. Discussed getting a UDS with him and treatment team. Reports a possible stimulant/methamphetamine use in addition to the alcohol use. Multiple attempts made to engage and attempt to keep him awake with no real success. Most of the information here is obtained from review of current records. An excerpt of his interaction with crisis stabilization is included below for recent history. Only noteworthy mental health care and system is back in January 2011 through August 2011 he did get outpatient treatment at [facility]. Otherwise appears that recent stressors have led to him coming here and active addiction has led to his current presentation and he did report suicidality to emergency room staff. We discussed Dr. Bernard being here tomorrow to attempt to get better history. Per his 11/19/2022 crisis stabilization center notes: Case management: Current Presentation: Client appeared anxious throughout encounter. unkempt, rapid speech and motor activity. Euphoric affect, Tangential thought process. Intervention: Client came in seeking housing. Client indicated he has recently became homeless and does not have a place to go. Upon entry assessment, client indicated he had thoughts of harming someone else. CSS spoke with client concerning these thoughts. Client noted he was angry, but did not want to get in trouble or act upon his feelings. CSS [facility] for [facility]. Upon further assessment, client agreed he would not act on these feelings and was more just frustrated and angry. Client agreed to complete and follow safety plan in collaboration with the CSS. Client indicated some positive coping mechanisms include enjoying nature alone, swimming, fishing, and shooting pool. Client has support systems including step daughter, ex , and his hindu. Client attributes his spirituality to be a major component of his life. Client does have medicare and medicaid. Client does have limited income and draws an SSI check. Client states he has been diagnosed with bipolar but has not taken medication for the last 10 months. Client states he has not been sleeping well, only for 2 hours a night. I am easy to anger and like I am walking on eggshells. Client also said it feels like his brain wont shut off . Client has extensive history of trauma involving of family/friends in which he witnessed firsthand. Client was not interested in receiving services through [facility] at this time. Client indicated he does not have any substance use aside from alcohol, which he stated he doesn't drink to get drunk, just a few beers here and there . Client stated he has used Methamphetamine in the past, but not within the last 10 years. Client says he has many physical ailments making it difficult to perform daily functions and cause him great distress. Client was provided with snack, water, a shower, clothing, and personal hygiene products. Client was also provided a [employer] backpack. Return plan was established to follow up with potential housing resources and creating stability goals. Client Response: Client was appreciative of services. Client Barriers: unhoused, mental health, substance use, manic state. Outcome of Encounter: Client left facility and indicated he would return the following day. Current SI: None Current HI: None Therapy note: Current Presentation: HEALTH PROFESSOR met with Alex due to his initial presentation of agitation and verbalization of wanting to harm his prior roommates. Alex vents about his current living situation and recent escalation between him and his roommates. He reports they have kicked me out and stole my stuff . He is concerned about not being able to take back possession of his belongings and having to start all over . Intervention: HEALTH PROFESSOR assessed for safety issues. Alex does verbalize thoughts of throwing them (roommates) out the window ; however, upon further assessment of HI he states i would not do that, i plan to go to the police department after here and see what i got to do to get my stuff back . He reports he is struggling with appropriate anger emotions related to these recent events and HI has crossed his mind; however, denies any intent to act on this. He recognizes he would not want to suffer the consequences of harming someone. Alex does report he has a place to stay, although it is not very comfortable. HEALTH PROFESSOR educated Alex on [facility] services and encouraged he continue to engage with [facility] staff in order to help address his current stability issues. Client Response to Intervention: Although Alex remained in a somewhat manic state throughout the interview, his behavior turned more positive and thanked this [facility] staff multiple times after hearing how [facility] serviecs could be beneficial to him. He agrees to create a safety plan with [facility] staff Narcisa Sheehan before leaving today. He will reach out to [facility] staff should his HI escalate to a dangerous level. Final Disposition: Alex will create a safety plan with [facility] staff Narcisa Sheehan. Alex will follow back up with [facility] staff regarding working on his stability needs. Current SI: None Current HI: Homicidal Thoughts/Behave (safety plan was completed by Narcisa Sheehan, [facility] Client operations support specialist. Hospital Course During the hospitalization, the patient had routine laboratory studies which were within normal limits except for a few outliers. Additionally, there was a general medical evaluation which was also within normal limits and revealed no new acute processes. At the time of discharge, lethality was denied and psychosis was resolving. Mood and anxiety were well managed. The patient endorsed a plan to avoid all drugs of abuse and follow up with the aftercare recommendations of the treatment team. The patient was evaluated and deemed to be absent credible lethality and had achieved the maximum benefit from an inpatient hospitalization, and so was discharged. Patient was restarted on celexa and it was increased to a a dose of 40mg daily with improved energy, mood and motivation at discharge. Meds NPU Home Medications Medication Instructions Recorded Confirmed Last Taken Type atenolol 25 mg tablet 25 mg PO DAILY 30 days #30 tabs 03/04/23 10/08/23 Unknown Rx levothyroxine 25 mcg tablet 25 mcg PO DAILY 30 days #30 tabs 03/04/23 10/08/23 Unknown Rx citalopram 20 mg tablet 20 mg PO DAILY 10/08/23 10/08/23 Unknown History Allergies Allergy/AdvReac Type Severity Reaction Status Date / Time tramadol Allergy ADR-Itching Verified 10/07/23 23:17 PFSH NPU 2 PFSH: Medical History Psychiatric care HTN (hypertension) Tobacco abuse Surgical History History of right knee surgery Right ACL - 10/1999 History of shoulder surgery Right shoulder 07/2014 - Dr Paredes Family History Mother Blood clot in vein Social History Smoking and tobacco/nicotine status: current every day tobacco/nicotine user cigarettes Packs smoked per day: 1 Years cigarettes smoked: 36 Alcohol intake: current Alcohol intake frequency: few times a week Substance/Drug Use: former Date of last use: 01/2022 Caregiver/support person: No Lives independently: Yes Household members: none Housing: House Mental Status Exam 2 MSE Comments: This is a slender/underweight white male in hospital scrubs with limited grooming and eye contact. No abnormal movements except for psychomotor retardation. Somewhat cooperative with exam in mild to moderate distress. Speech was limited and decreased rate and volume. Mood described as tired and depressed and frustrated, affect congruent and subdued. Thought process linear. Thought content: Patient endorsed having suicidal thoughts upon admission but denied current suicidal or homicidal ideation, there were no delusions reported or noted, he denied auditory or visual hallucinations. The patient appears to be distressed and struggling with addiction. There is no mention of suicidal risk, thoughts of violence or aggression against others, restlessness, irritability, visual hallucinations, anxiety, or depression.Attention and concentration were impaired and memory appeared mostly reliable but none were formally tested. He was arousable and oriented to person and place. Insight, judgment and impulse control were impaired. Vitals/I&O/Wt Last Vital Signs Temp 98.2 F 10/08/23 06:00 Pulse 68 10/08/23 06:00 Resp 15 10/08/23 06:00 BP 109/61 10/08/23 06:00 Pulse Ox 97 10/08/23 06:00 O2 Del Method Room Air 10/08/23 06:00 Weight last 48 hrs Weight 60.781 kg Data NPU 10/07/23 00:00 10/07/23 00:00 A&P Assessment and plan (1) Depression: (2) Amphetamine abuse: (3) ETOH abuse: (4) Suicidal ideation: (5) Methamphetamine use disorder, severe: (6) Withdrawal from methamphetamine: Plan This is a 57-year-old white male with a history of depression and addiction with previous presentation that was fairly similar who is struggling with methamphetamine addiction and is currently not on any psychiatric medication. The patient is on disability and is not currently working. The patient has been enrolled in [facility] and is planning to go to a long-term sober living place. 1.? Restart Celexa 20 mg p.o. daily along with his atenolol and Synthroid as currently prescribed. 2.? Encourage individual, group, and milieu therapy. 3.? Continue q-15-minute checks for safety. 4.? Recommend sober living treatment at the highest level of care to which the patient is willing to commit. 5. Patient has a sober living facility in [place] that there is a arranged acceptance on Wednesday and we will attempt to work with the case advocate or other providers to ensure that he gets there on Wednesday. Involuntary Hold Information 2 96 Hour Hold: 96 Hour Involuntary Admission: No Attestations NPU 2 Medical Necessity Statement*: Inpatient hospitalization is medically necessary and the clinically appropriate intervention, at this time. We will monitor medications and make changes as indicated. Patient will be in the hospital for over two midnights. Likely length of stay is three to five days. Coding Level of Care Code Acute Code for g Fwd Diagnoses Depression F32.A Amphetamine abuse F15.10 ETOH abuse F10.10 Suicidal ideation R45.851 Methamphetamine use disorder, severe F15.20 Withdrawal from methamphetamine F15.93
[2023-10-08] MEDS: levothyroxine 25 mcg Tablet PO (08:31)
[2023-10-08] MEDS: hyDROXYzine 25 mg Capsule 50 MG PO (08:31)
[2023-10-08] MEDS: acetaminophen 325 mg Tablet 650 MG PO (08:31)
[2023-10-08] MEDS: citalopram 20 mg Tablet PO (08:31)
[2023-10-08] MEDS: atenolol 50 mg Tablet 25 MG PO (08:31)
--- NOTE | 2023-10-08 09:01 | PC.NURSE ---
IN BED RESTING, AROUSES TO VOICE. DENIES SI/HI AND AVH AT THIS TIME. REPORTS NECK PAIN 10/22, RN TO GIVE CELEBREX ORDERED FOR PAIN. RATES ANXIETY 10/22 AND DEPRESSION 12/22., RN NOTIFIED OF PTS ANXIETY AND REQUESTS FOR MEDICATIONS TO DECREASE ANXIETY. PT REPORTS TO RN THAT HE IS SUPPOSE TO GO TO A YEAR LONG TREATMENT/REHAB FOR DRUG AND ALCOHOL ABUSE ON WEDNESDAY. PT STATES GOAL FOR THE DAY IS ' TO GET INTO MY REHAB ON WEDNESDAY. PT DID GET UP TO EAT BREAKFAST AFTER MULTIPLE REQUESTS TO GET UP AND EAT. PT IS ANIMATED WHEN SPEAKING. ALL QUESTIONS ANSWERED AND SUPPORT WAS VOICED.
[2023-10-08 14:00] VITALS: BP 112/65; PULSE 59; RESP 18; TEMP 36.5; O2SAT 97
--- NOTE | 2023-10-08 14:12 | PC.OT ---
Attempted OT evaluation 2x at 9 am and at 14 pm with pt sleeping soundly. Will attempt again at later time.
[2023-10-08 20:43] VITALS: BP 120/76; PULSE 92; RESP 17; O2SAT 98
[2023-10-09 06:00] VITALS: BP 118/68; PULSE 55; RESP 16; O2SAT 99
--- NOTE | 2023-10-09 08:04 | W.PM.NPUPNS ---
Subjective NPU Subjective: Patient presented today reporting that he is doing okay. He reports that he is tolerating the restarting of his medication without any significant concerns. He continues to be focused on his plan to go to the sober living/sobriety program on Wednesday that was arranged by his skilled nursing case manager and reportedly connected with assistance from the crisis stabilization center. We discussed the fact that Dr. Bernard would be here tomorrow and he would continue to assist in executing this plan for Wednesday. He denied any side effects to the medication. Mental Status Exam MSE Comments: This is a slender/underweight white male in hospital scrubs with limited grooming and eye contact. No abnormal movements except for psychomotor retardation. Somewhat cooperative with exam in mild to moderate distress. Speech was limited and decreased rate and volume. Mood described as tired and depressed and frustrated, affect congruent and subdued. Thought process linear. Thought content: Patient endorsed having suicidal thoughts upon admission but denied current suicidal or homicidal ideation, there were no delusions reported or noted, he denied auditory or visual hallucinations. The patient appears to be distressed and struggling with addiction. There is no mention of suicidal risk, thoughts of violence or aggression against others, restlessness, irritability, visual hallucinations, anxiety, or depression.Attention and concentration were impaired and memory appeared mostly reliable but none were formally tested. He was arousable and oriented to person and place. Insight, judgment and impulse control were impaired. Vitals/I&O/Wt Last Vital Signs Temp 97.7 F 10/08/23 14:00 Pulse 55 L 10/09/23 06:00 Resp 16 10/09/23 06:00 BP 118/68 10/09/23 06:00 Pulse Ox 99 10/09/23 06:00 O2 Del Method Room Air 10/08/23 06:00 Weight last 48 hrs Weight 60.781 kg Data NPU 10/07/23 00:00 10/07/23 00:00 A&P Assessment and plan (1) Depression: (2) Amphetamine abuse: (3) ETOH abuse: (4) Suicidal ideation: (5) Methamphetamine use disorder, severe: (6) Withdrawal from methamphetamine: Plan This is a 57-year-old white male with a history of depression and addiction with previous presentation that was fairly similar who is struggling with methamphetamine addiction and is currently not on any psychiatric medication. The patient is on disability and is not currently working. The patient has been enrolled in [facility] and is planning to go to a long-term sober living place. 1.? Restart Celexa 20 mg p.o. daily along with his atenolol and Synthroid as currently prescribed. 2.? Encourage individual, group, and milieu therapy. 3.? Continue q-15-minute checks for safety. 4.? Recommend sober living treatment at the highest level of care to which the patient is willing to commit. 5. Patient has a sober living facility in [place] that there is a arranged acceptance on Wednesday and we will attempt to work with the social work case manager or other providers to ensure that he gets there on Wednesday. Involuntary Hold Information 96 Hour Hold: 96 Hour Involuntary Admission: No Attestations NPU Medical Necessity Statement*: Inpatient hospitalization is medically necessary and the clinically appropriate intervention, at this time. We will monitor medications and make changes as indicated. Likely length of stay is 2-4 days. Coding Level of Care Code Acute Code for [facility] Fwd Diagnoses Depression F32.A Amphetamine abuse F15.10 ETOH abuse F10.10 Suicidal ideation R45.851 Methamphetamine use disorder, severe F15.20 Withdrawal from methamphetamine F15.93
[2023-10-09] MEDS: nicotine 21 mg Patch 1 PATCH TRANSDERMA (08:44)
[2023-10-09] MEDS: levothyroxine 25 mcg Tablet PO (08:44)
[2023-10-09] MEDS: acetaminophen 325 mg Tablet 650 MG PO (08:44)
[2023-10-09] MEDS: citalopram 20 mg Tablet PO (08:44)
[2023-10-09] MEDS: atenolol 50 mg Tablet 25 MG PO (08:45)
[2023-10-09 14:00] VITALS: BP 104/60; PULSE 78; RESP 16; TEMP 36.8; O2SAT 99
[2023-10-09 20:18] VITALS: BP 111/62; PULSE 65; RESP 17; TEMP 36.6; O2SAT 98
[2023-10-09] MEDS: hyDROXYzine 25 mg Capsule 50 MG PO (20:39)
[2023-10-09] MEDS: trazodone 50 mg Tablet PO (20:39)
[2023-10-10 06:00] VITALS: BP 107/62; PULSE 74; RESP 17; O2SAT 100
[2023-10-10] MEDS: levothyroxine 25 mcg Tablet PO (06:06)
[2023-10-10] MEDS: citalopram 20 mg Tablet PO (08:43)
[2023-10-10] MEDS: atenolol 50 mg Tablet 25 MG PO (08:44)
[2023-10-10] MEDS: nicotine 21 mg Patch 1 PATCH TRANSDERMA (08:50)
[2023-10-10 14:00] VITALS: BP 96/54; PULSE 63; RESP 16; TEMP 36.8; O2SAT 100
--- NOTE | 2023-10-10 15:45 | PC.NURSE ---
Patient is supposed to leave to go to [facility] in [place], [place] on Wednesday, October 11, 2023. Patient is to be picked up by Yanet osborn, phone number [phone]. patient is to arrive at the facility before 11am. This nurse called facility to see where medications need to be sent; unable to talk to anybody. Voice message left for return call. Phone number is [phone]. Dr. Bernard made aware.
--- NOTE | 2023-10-10 16:39 | W.PM.NPUPNS ---
Subjective NPU Subjective: 58-year-old male admitted for depression and suicidal ideation was positive for methamphetamine on admission. He had reported continued struggles with methamphetamine abuse despite efforts to discontinue it at this time. He reported that he wished to go to a rehabilitation center. He had reported that he had been depressed as well. He had reported continued homelessness. Mental Status Exam MSE Comments: This is a slender/underweight white male in hospital scrubs with limited grooming and eye contact. No abnormal movements except for psychomotor retardation. He was was cooperative with exam in mild moderate distress. Speech was productive and nnormal in rate and volume. Mood described as depressed. His affect was mood congruent and restricted. His thought process was linear. Thought content: Patient endorsed having no suicidal thoughts or homicidal ideation today. There were no delusions reported or noted, he denied auditory or visual hallucinations. The patient appears to be distressed and struggling with addiction. Attention and concentration were impaired and memory appeared mostly reliable but none were formally tested. He was arousable and oriented to person and place and time. Insight, judgment and impulse control were impaired. Vitals/I&O/Wt Last Vital Signs Temp 98.3 F 10/10/23 14:00 Pulse 63 10/10/23 14:00 Resp 16 10/10/23 14:00 BP 96/54 10/10/23 14:00 Pulse Ox 100 10/10/23 14:00 O2 Del Method Room Air 10/10/23 14:00 Weight last 48 hrs Weight 62.596 kg Data NPU 10/07/23 00:00 10/07/23 00:00 A&P Assessment and plan (1) Depression: (2) Amphetamine abuse: (3) ETOH abuse: (4) Suicidal ideation: (5) Methamphetamine use disorder, severe: (6) Withdrawal from methamphetamine: Plan This is a 57-year-old white male with a history of depression and addiction with previous presentation that was fairly similar who is struggling with methamphetamine addiction and is currently not on any psychiatric medication. The patient is on disability and is not currently working. The patient has been enrolled in [facility] and is planning to go to a long-term sober living place. 1.? Continue Celexa 20 mg p.o. daily along with his atenolol and Synthroid as currently prescribed. 2.? Encourage individual, group, and milieu therapy. 3.? Continue q-15-minute checks for safety. 4.? Recommend sober living treatment at the highest level of care to which the patient is willing to commit. 5. Patient has a sober living facility in [place] that there is a arranged acceptance on Wednesday and we will attempt to work with the pillowcase folder or other providers to ensure that he gets there on Wednesday. Involuntary Hold Information 96 Hour Hold: 96 Hour Involuntary Admission: No Attestations NPU Medical Necessity Statement*: Inpatient hospitalization is medically necessary and the clinically appropriate intervention, at this time. We will monitor medications and make changes as indicated. His Likely length of stay is 2-4 days. Coding Level of Care Code Acute Code for [facility] Fwd Diagnoses Depression F32.A Amphetamine abuse F15.10 ETOH abuse F10.10 Suicidal ideation R45.851 Methamphetamine use disorder, severe F15.20 Withdrawal from methamphetamine F15.93
[2023-10-10] MEDS: acetaminophen 325 mg Tablet 650 MG PO (17:21)
[2023-10-10 20:21] VITALS: BP 112/68; PULSE 80; RESP 18; TEMP 37; O2SAT 96
[2023-10-10] MEDS: hyDROXYzine 25 mg Capsule 50 MG PO (21:27)
[2023-10-11 06:00] VITALS: BP 109/63; PULSE 67; RESP 16; TEMP 36.5; O2SAT 100
[2023-10-11] MEDS: levothyroxine 25 mcg Tablet PO (06:21)
[2023-10-11] MEDS: nicotine 21 mg Patch 1 PATCH TRANSDERMA (07:59)
--- NOTE | 2023-10-11 08:39 | P.NPUDS_ITS ---
Diagnoses at Discharge Discharge Diagnosis (1) Depression: Status: Acute (2) Amphetamine abuse: Status: Resolved (3) ETOH abuse: Status: Resolved (4) Suicidal ideation: Status: Acute (5) Methamphetamine use disorder, severe: Status: Acute (6) Withdrawal from methamphetamine: Status: Acute Reason for Visit Reason for Visit: pain in neck dizzy feels like pass out Brief History: History of Present Illness Alex Tse is a 58 year old male who presented to the emergency department with the following report: Chief Complaint: Psychiatric Symptoms Stated Complaint: pain in neck Time Seen by Provider: 10/07/23 23:44 History of Present Illness: Patient presents to the ER reporting that he wants to end his life. He does not have anywhere to go rough and it was helping him just dropped him off and has not returned to get him. Patient is post to go to rehab in [place] on Wednesday for math but is now homeless and he says he just wants to end it all. He was admitted to the neuropsychiatric unit for definitive treatment of those issues. He is known to [facility] through inpatient and outpatient services and his last hospitalization was last year. An excerpt of his March 04, 2023 discharge summary is included below for context. He presents today reporting: Chief complaint The patient expressed distress over being left alone for extended periods, specifically mentioning an instance of being left at a location for 11 hours. The patient also reported struggling with addiction, specifically methamphetamine, for the past three months. History of the present complaint The patient, who was last seen in 2022, has been struggling with a methamphetamine addiction for an extended period. The addiction has been particularly severe for the past three months. The patient is currently enrolled in [facility] ([facility] and is planning to enter a long-term sober living facility on the upcoming Wednesday. The patient has been living with a female individual for about four months, but this arrangement has ended, which has caused some distress. The patient is currently not working and is on disability. Despite being connected with services, the patient continues to struggle with addiction. The patient has previously been prescribed medication for blood pressure but is not currently on any psychiatric medication. The patient has not found any medication effective for their addiction in the past. The patient's plan is to continue without medication for now, but there is a possibility of restarting a previously prescribed medication. The patient's care team will be contacted regarding the upcoming stay at the sober living facility. We discussed the risks, benefits and alternatives of restarting his medication including Celexa for depression and anxiety and Synthroid and atenolol and he understood and agreed to proceed as is documented in this note. Mental health history The patient has a history of psychiatric consultations, with the last one being in 2022. The patient is currently enrolled in [facility] ([facility]) and has been struggling with addiction. There is no history of psychiatric medication use. Social history The patient has been living with a female pharmaceutical development technician for four months but is no longer staying with her. The patient is currently unemployed and on disability. The patient has a history of methamphetamine use and is currently struggling with addiction. Per his 03/04/2023 [facility] inpatient psychiatric discharge summary: Discharge Diagnosis (1) Depression with suicidal ideation: Status: Acute (2) Amphetamine abuse: Status: Acute (3) ETOH abuse: Status: Acute Reason for Visit Reason for Visit: damian driver wants to admit self Brief History: History of Present Illness Alex Tse is a 57 year old male who presented the emergency department with the following report: Chief Complaint: Psychiatric Symptoms Stated Complaint: damian driver wants to admit self Time Seen by Provider: 02/26/23 00:40 History of Present Illness: 57-year-old male presents to the emergen cy department with statements that he feels extremely depressed and feels like he has no way out except for committing suicide. He states that he is talked to his primary care provider and was advised to come to the emergency department to be evaluated. He states that he is going to use a gun on himself and he does have access to a gun. He states that he has had increased significant life stressors to include being homeless, not being able to work, getting from his and is not able to see his grandkids. Associated symptoms: Reports depression and suicidal ideation Admitted to the neuropsychiatric unit for definitive treatment of those issues. He presented today very lethargic. Today BAL of 29 and his UDS has not been obtained at this point. Discussed getting a UDS with him and treatment team. Reports a possible stimulant/methamphetamine use in addition to the alcohol use. Multiple attempts made to engage and attempt to keep him awake with no real success. Most of the information here is obtained from review of current records. An excerpt of his interaction with crisis stabilization is included below for recent history. Only noteworthy mental health care and system is back in January 2011 through August 2011 he did get outpatient treatment at [facility]. Otherwise appears that recent stressors have led to him coming here and active addiction has led to his current presentation and he did report suicidality to emergency room staff. We discussed Dr. Bernard being here tomorrow to attempt to get better history. Per his 11/19/2022 crisis stabilization center notes: Case management: Current Presentation: Client appeared anxious throughout encounter. unkempt, rapid speech and motor activity. Euphoric affect, Tangential thought process. Intervention: Client came in seeking housing. Client indicated he has recently became homeless and does not have a place to go. Upon entry assessment, client indicated he had thoughts of harming someone else. CSS spoke with client concerning these thoughts. Client noted he was angry, but did not want to get in trouble or act upon his feelings. CSS deferred to [facility] to assess for SI. Upon further assessment, client agreed he would not act on these feelings and was more just frustrated and angry. Client agreed to complete and follow safety plan in collaboration with the CSS. Client indicated some positive coping mechanisms include enjoying nature alone, swimming, fishing, and shooting pool. Client has support systems including step daughter, ex , and his cheondoism. Client attributes his spirituality to be a major component of his life. Client does have medicare and medicaid. Client does have limited income and draws an SSI check. Client states he has been diagnosed with bipolar but has not taken medication for the last 10 months. Client states he has not been sleeping well, only for 2 hours a night. I am easy to anger and like I am walking on eggshells. Client also said it feels like his brain wont shut off . Client has extensive history of trauma involving of family/friends in which he witnessed firsthand. Client was not interested in receiving services through [facility] at this time. Client indicated he does not have any substance use aside from alcohol, which he stated he doesn't drink to get drunk, just a few beers here and there . Client stated he has used Methamphetamine in the past, but not within the last 10 years. Client says he has many physical ailments making it difficult to perform daily functions and cause him great distress. Client was provided with snack, water, a shower, clothing, and personal hygiene products. Client was also provided a [employer] backpack. Return plan was established to follow up with potential housing resources and creating stability goals. Client Response: Client was appreciative of services. Client Barriers: unhoused, mental health, substance use, manic state. Outcome of Encounter: Client left facility and indicated he would return the following day. Current SI: None Current HI: None Therapy note: Current Presentation: MECHANICAL MANUFACTURING TECHNICIAN met with Alex due to his initial presentation of agitation and verbalization of wanting to harm his prior roommates. Alex vents about his current living situation and recent escalation between him and his roommates. He reports they have kicked me out and stole my stuff . He is concerned about not being able to take back possession of his belongings and having to start all over . Intervention: MECHANICAL MANUFACTURING TECHNICIAN assessed for safety issues. Alex does verbalize thoughts of throwing them (roommates) out the window ; however, upon further assessment of HI he states i would not do that, i plan to go to the police department after here and see what i got to do to get my stuff back . He reports he is struggling with appropriate anger emotions related to these recent events and HI has crossed his mind; however, denies any intent to act on this. He recognizes he would not want to suffer the consequences of harming someone. Alex does report he has a place to stay, although it is not very comfortable. [facility] educated Alex on [facility] services and encouraged he continue to engage with [facility] staff in order to help address his current stability issues. Client Response to Intervention: Although Alex remained in a somewhat manic state throughout the interview, his behavior turned more positive and thanked this [facility] staff multiple times after hearing how [facility] serviecs could be beneficial to him. He agrees to create a safety plan with [facility] staff Narcisa Sheehan before leaving today. He will reach out to [facility] staff should his HI escalate to a dangerous level. Final Disposition: Alex will create a safety plan with [facility] staff Narcisa Sheehan. Alex will follow back up with [facility] staff regarding working on his stability needs. Current SI: None Current HI: Homicidal Thoughts/Behave (safety plan was completed by Narcisa Sheehan, [facility] Client product support consultant. Hospital Course During the hospitalization, the patient had routine laboratory studies which were within normal limits except for a few outliers. Additionally, there was a general medical evaluation which was also within normal limits and revealed no new acute processes. At the time of discharge, lethality was denied and psychosis was resolving. Mood and anxiety were well managed. The patient endorsed a plan to avoid all drugs of abuse and follow up with the aftercare recommendations of the treatment team. The patient was evaluated and deemed to be absent credible lethality and had achieved the maximum benefit from an inpatient hospitalization, and so was discharged. Patient was restarted on celexa and it was increased to a a dose of 40mg daily with improved energy, mood and motivation at discharge. Hospital Course Hospital Course During the hospitalization, the patient had routine laboratory studies which were within normal limits except for a few outliers.? Additionally, there was a general medical evaluation which was also within normal limits and revealed no new acute processes.? At the time of discharge, lethality was denied and psychosis was resolving.? Mood and anxiety were well managed.? The patient endorsed a plan to avoid all drugs of abuse and follow up with the aftercare recommendations of the treatment team.? The patient was evaluated and deemed to be absent credible lethality and had achieved the maximum benefit from an inpatient hospitalization, and so was discharged. The patient had endorsed depression and Celexa was started to target depression. He had reported homelessness for an extended period of time and reported significant substance use and was directly transferred to a substance abuse facility on the day of discharge for further treatment to manage his polysubstance dependence. ? Involuntary Hold Information 96 Hour Hold: 96 Hour Involuntary Admission: No Mental Status Exam MSE Comments: This is a slender/underweight white male in hospital scrubs with limited grooming and eye contact. No abnormal movements except for psychomotor ammon rdation. He was was cooperative with exam in mild to moderate distress. Speech was productive and normal in rate and volume. Mood described as okay. His affect was mood incongruent and restricted in range. His thought process was linear. Thought content: Patient endorsed having no suicidal thoughts or homicidal ideation at discharge. There were no delusions reported or noted, he denied auditory or visual hallucinations. The patient appears to be distressed and struggling with addiction. Attention and concentration were impaired and memory appeared mostly reliable but none were formally tested. He was arousable and oriented to person and place and time. Insight was improved. Judgment was adequate. His impulse control was improved. Discharge Data Studies Completed and Pending: Laboratory Results WBC 6.69 10^3/uL (3.2 9-11.43) 10/07/23 00:00 RBC 3.88 10^6/uL (3.8 5-5.65) 10/07/23 00:00 Hgb 12.10 g/dL (11.27 -16.99) 10/07/23 00:00 Hct 36.1 % (37-53) L 10/07/23 00:00 MCV 93.0 fl (82-101) 10/07/23 00:00 MCH 31.2 pg (27-33) 10/07/23 00:00 MCHC 33.5 g/dL (30-55) 10/07/23 00:00 RDW 14.0 % (12.1-15.1 ) 10/07/23 00:00 Plt Count 211 10^3/cmm (157 -399) 10/07/23 00:00 MPV 9.6 fL (7.4-10.4) 10/07/23 00:00 Neut % (Auto) 48.1 % 10/07/23 00:00 Lymph % (Auto) 37.2 % 10/07/23 00:00 [place] % (Auto) 8.8 % 10/07/23 00:00 Eos % (Auto) 5.4 % 10/07/23 00:00 Baso % (Auto) 0.4 % 10/07/23 00:00 Neut # (Auto) 3.21 10^3/uL (1.8 -7.7) 10/07/23 00:00 Lymph # (Auto) 2.5 10^3/uL (0.8- 4.8) 10/07/23 00:00 [place] # (Auto) 0.6 10^3/uL (0.2- 0.9) 10/07/23 00:00 Eos # (Auto) 0.4 10^3/uL (0.0- 0.8) 10/07/23 00:00 Baso # (Auto) 0.0 10^3/uL (0.0- 0.1) 10/07/23 00:00 Nucleated RBC % (a uto) 0 % 10/07/23 00:00 Nucleated RBCs # 0.0 /100WBC 10/07/23 00:00 Sodium 143 mmol/L (136-1 45) 10/07/23 00:00 Potassium 4.2 mmol/L (3.5-5 .1) 10/07/23 00:00 Chloride 105 mmol/L (98-10 7) 10/07/23 00:00 Carbon Dioxide 30 mmol/L (22-29) H 10/07/23 00:00 Anion Gap 12.2 (5-19) 10/07/23 00:00 BUN 13 mg/dL (6-20) 10/07/23 00:00 Creatinine 0.9 mg/dL (0.7-1. 2) 10/07/23 00:00 GFR Calculation 87.0 mL/min (90-1 30) L 10/07/23 00:00 Glucose 70 mg/dL (65-115) 10/07/23 00:00 Calculated Osmolal ity 295 mOsm/kg (285- 295) 10/07/23 00:00 Calcium 8.9 mg/dL (8.5-10 .5) 10/07/23 00:00 Total Bilirubin 0.2 mg/dL (0.15-1 .2) 10/07/23 00:00 AST 20 U/L (0-40) 10/07/23 00:00 ALT 19 U/L (0-41) 10/07/23 00:00 Alkaline Phosphata se 84 U/L (40-130) 10/07/23 00:00 Total Protein 6.5 g/dL (6.6-8.7 ) L 10/07/23 00:00 Albumin 3.9 g/dL (3.5-5.2 ) 10/07/23 00:00 Globulin 2.6 g/dL (1.3-4.6 ) 10/07/23 00:00 TSH 5.49 uIU/mL (0.27 -4.20) H 10/07/23 00:00 Urine Color Yellow (Yellow) 10/08/23 01:02 Urine Appearance Clear (CLEAR) 10/08/23 01:02 Urine pH 6.5 (5-7) 10/08/23 01:02 Ur Specific Gravit y 1.015 (1.005-1.0 30) 10/08/23 01:02 Urine Protein Neg (Negative) 10/08/23 01:02 Urine Glucose (UA) Norm (Normal) 10/08/23 01:02 Urine Ketones Negative (Negati ve) 10/08/23 01:02 Urine Blood Neg (Negative) 10/08/23 01:02 Urine Nitrate Negative (Negati ve) 10/08/23 01:02 Urine Bilirubin Neg (Negative) 10/08/23 01:02 Urine Urobilinogen 1 mg/dL (Negative ) H 10/08/23 01:02 Ur Leukocyte June ase Negative (Negati ve) 10/08/23 01:02 Salicylates < 0.3 mg/dL (3-10 ) L 10/07/23 00:00 Urine Opiates Scre en Negative ng/mL (N egative) 10/08/23 01:02 Acetaminophen < 5.0 ug/mL (10-3 0) L 10/07/23 00:00 Ur Barbiturates Sc reen Negative ng/mL (N egative) 10/08/23 01:02 Ur Phencyclidine S crn Negative ng/mL (N egative) 10/08/23 01:02 Ur Amphetamines Sc reen Positive ng/mL (N egative) H 10/08/23 01:02 U Benzodiazepines Scrn Negative ng/mL (N egative) 10/08/23 01:02 Urine Cocaine Scre en Negative ng/mL (N egative) 10/08/23 01:02 U Marijuana (THC) Screen Positive ng/mL (N egative) H 10/08/23 01:02 Ethyl Alcohol < 10 mg/dL (0-10) 10/07/23 00:00 Vitals: Last Vital Signs Temp 97.7 F 10/11/23 06:00 Pulse 67 10/11/23 06:00 Resp 16 10/11/23 06:00 BP 109/63 10/11/23 06:00 Pulse Ox 100 10/11/23 06:00 O2 Del Method Room Air 10/10/23 14:00 Discharge Plan Discharge Patient Disposition: Home Condition: Stable Prescriptions: Continued atenolol 25 mg tablet 25 mg PO DAILY 30 Days Qty: 30 1RF Rx Instructions: take 1 PO daily levothyroxine 25 mcg tablet 25 mcg PO DAILY 30 Days Qty: 30 1RF citalopram 20 mg Tablet 20 mg PO DAILY Qty: 30 1RF Discharge Orders: Discharge Order (Routine); Ordered 10/11/23 Ordered By: Navneet Bernard Referrals: [facility] [Other] - 10/11/23 1:00 pm [facility] [Other] - 1-3 days (Walk in for services Wednesday thru Wednesday 8am to 4pm.) Catracho Mix MD [Primary Care Provider] - Discharge Diet: Usual diet Discharge Activity: Resume usual activity Patient Instructions: Atenolol (By mouth) (Tenormin), Levothyroxine (By mouth) (Levothroid, Levoxyl, Synthroid, Tirosint), Citalopram (By mouth) (Celexa), Depression (DC), Methamphetamine Use Disorder (DC), Polysubstance Use Disorder (DC), Suicide Prevention (DC), Opioid Safety Discharge Attestations NPU Time Spent in Discharge Care*: less than 30 min Specific Discharge Activities: Specific discharge activities: educating p atient and discussing with manager of case management/social workers/dc planners Coding Level of Care Code Acute Code for Chg Fwd Diagnoses Depression F32.A Amphetamine abuse F15.10 ETOH abuse F10.10 Suicidal ideation R45.851 Methamphetamine use disorder, severe F15.20 Withdrawal from methamphetamine F15.93
[2023-10-11] MEDS: citalopram 20 mg Tablet PO (08:44)
[2023-10-11] MEDS: atenolol 50 mg Tablet 25 MG PO (08:45)
[2023-10-11 09:27] VITALS: BP 109/63; PULSE 67; RESP 16; TEMP 36.5; O2SAT 100
--- NOTE | 2023-10-11 14:05 | DCPLANNER ---
IMM was given to pt on 10/11/23 @ 9209. Pt was given a copy of rights and he stated he understood his rights.
== END 2023-10-11 10:58 | DRG 881 ==
LOC: ER 10-08 01:55 → NP 10-08 02:27
PROVIDERS: Nurse Practitioner Family; Admitting Provider Psychiatry & Neurology Psychiatry; Emergency Provider Emergency Medicine; PCP Family Medicine; Visit Provider Psychiatry & Neurology Psychiatry
DX: F32.A Depression, unspecified (principal); F15.13 Other stimulant abuse with withdrawal; R45.851 Suicidal ideations; Z59.00 Homelessness unspecified; F10.10 Alcohol abuse, uncomplicated; I10 Essential (primary) hypertension; Z87.891 Personal history of nicotine dependence
CPT/HCPCS: 36415; 80053; 80306; 80307; 81003; 84443; 85025; 93005; 97150; 97165; 99285

== ENCOUNTER 2023-10-26 09:43 | Outpatient (CLI) | payer MEDICARE, MEDICAID, SELFPAY ==
--- NOTE | 2023-10-26 09:54 | XR_ITS ---
WS: [id number] Examination: XR cervical spine 3V* [id number] Reason for Exam: neck pain with decreased ROM Date: October 26, 2023 Comparison: No previous plain films are available for comparison Findings: The bone density is diminished. There is reversal of the normal lordotic curvature. There is no wedging or compression There is mild anterior offset at C2-3 Diffuse disc space narrowing is identified at C3-4, C4-5, and C5-6. Posterior and anterior osteophyte s are present. The BERTHA and the C1-2 relationship are intact. There is no prevertebral swelling. XR/XR cervical spine 3V* [id number] Impression: Prominent degenerative disc disease is present. This is noted at C3-4, C4-5, an d C5-6. There is no wedging or compression. There is mild C2-3 anterior offset.
== END 2023-10-26 09:44 | disposition home or self-care (01) ==
LOC: RAD 09:45
PROVIDERS: PCP Family Medicine; Visit Provider Clinical Nurse Specialist Adult Health
DX: M50.31 Other cervical disc degeneration, high cervical region (principal); M50.321 Other cervical disc degeneration at C4-C5 level; M50.322 Other cervical disc degeneration at C5-C6 level; M25.78 Osteophyte, vertebrae
CPT/HCPCS: 72040

== ENCOUNTER 2023-10-29 22:06 | Emergency (ER) | payer MEDICARE, MEDICAID, SELFPAY ==
[2023-10-29 22:22] VITALS: BP 112/66; PULSE 82; RESP 18; TEMP 36.7; O2SAT 96; BMI 19.9
--- NOTE | 2023-10-29 22:25 | ECG_ITS ---
[facility] Test Date: 2023-10-29 Pat Name: Alex Tse Department: Room: Gender: Male [employer] Commerce Consultant: : 1965 Requested By: Moon Martinez Order Number: [id number] Gómez MD: SANDRA SIEGEL Measurements Intervals [place] Rate: 81 P: 81 IA: 164 QRS: 77 QRSD: 94 T: 78 QT: 357 QTc: 415 Interpretive Statements SINUS RHYTHM POSSIBLE LEFT ATRIAL ENLARGEMENT [-0.1mV P-WAVE IN V1/V2] Compared to ECG 10/07/2023 23:58:05 No significant changes Electronically Signed On 10-30-2023 20:23:20 CDT by SANDRA SIEGEL [email or web address]
--- NOTE | 2023-10-29 22:26 | ED.C_ITS ---
HPI - Psych 2 General: Chief Complaint: Psychiatric Symptoms Stated Complaint: Wants to be 89'ed Time Seen by Provider: 10/29/23 22:19 History of Present Illness: 58-year-old man with history of hyperten violetta, tobacco dependence and depression/psychiatric issues who presents to the emergency room with suicidal thoughts. He says he was thinking about overdosing on fentanyl. He says that he had been with somebody for 2 weeks and he thought he really loved him and they broke his heart and now he is homeless again. He is considering killing himself. Related Data Previous Rx's Medication Instructions Recorded citalopram 20 mg tablet 20 mg PO DAILY #30 tabs 10/10/23 atenolol 25 mg tablet 25 mg PO DAILY 30 days #30 tabs 10/25/23 levothyroxine 25 mcg tablet 25 mcg PO DAILY 30 days #30 tabs 10/25/23 Allergies Allergy/AdvReac Type Severity Reaction Status Date / Time tramadol Allergy ADR-Itching Verified 10/26/23 09:10 Review of Systems 2 Narrative: Constitutional symptoms: Negative except as documented in HPI. Skin symptoms: Negative except as documented in HPI. Eye symptoms: Negative except as documented in HPI. ENMT symptoms: Negative except as documented in HPI. Respiratory symptoms: Negative except as documented in HPI. Cardiovascular symptoms: Negative except as documented in HPI. Gastrointestinal symptoms: Negative except as documented in HPI. Genitourinary symptoms: Negative except as documented in HPI. Musculoskeletal symptoms: Negative except as documented in HPI. Neurologic symptoms: Negative except as documented in HPI. Psychiatric symptoms: Negative except as documented in HPI. Endocrine symptoms: Negative except as documented in HPI. PFS ED 2 PFSH: Medical History Psychiatric care HTN (hypertension) Tobacco abuse Surgical History History of right knee surgery Right ACL - 10/1999 History of shoulder surgery Right shoulder 07/2014 - Dr Paredes Family History Mother Blood clot in vein Social History Smoking and tobacco/nicotine status: current every day tobacco/nicotine user cigarettes Packs smoked per day: 1 Years cigarettes smoked: 36 Alcohol intake: current Alcohol intake frequency: few times a week Substance/Drug Use: former Date of last use: 01/2022 Caregiver/support person: No Lives independently: Yes Household members: none Housing: House Physical Exam 2 Narrative: EXAM NARRATIVE: General: Alert. no acute distress Skin: Warm, dry Head: Normocephalic, atraumatic. Neck: Supple, trachea midline. Eye: Extraocular movements are intact. Ears, nose, mouth and throat: Oral mucosa moist. Cardiovascular: Regular rate and rhythm, Normal peripheral perfusion. Respiratory: Lungs are clear to auscultation, respirations are non-labored, breath sounds are equal, Symmetrical chest wall expansion. Gastrointestinal: Soft, Nontender, Non distended, Normal bowel sounds. Musculoskeletal: Normal ROM, no deformity. Neurological: Alert and oriented to person, place, time, and situation, No focal neurological deficit observed. Psychiatric: Cooperative, depressed, expresses suicidal ideation. Course 2 Vital Signs: Vital signs: Vital Signs Temperature 98.1 F 10/29/23 22:22 Pulse Rate 65 10/30/23 02:40 Respiratory Rate 18 10/29/23 22:22 Blood Pressure 105/66 10/30/23 02:40 Pulse Oximetry 97 10/30/23 02:40 Oxygen Delivery Me thod Room Air 10/30/23 02:40 MDM - Psych Medical Decision Making Differential diagnosis: Patient with reported depression and suicidal ideation. concerns for infection, alcohol intoxication, cardiac issues or other medical problems prior to psychiatric admission. Workup: labwork, ekg ordered to evaluate the pathologies and to clear the patient medically prior to psychiatric admission Lab Review: Laboratory results were reviewed and interpreted by myself the emergency room physician. Lab review: - Medically cleared. - EKG shows no ischemic changes. - Blood alcohol level is negative, -Tylenol and salicylate levels are negative. - Drug screen is positive for methamphetamines - No signs of infection, urinalysis clear and white count is not elevated - No anemia. - BUN and creatinine are within normal limits. Assessment and plan: Depression Suicidal ideation Methamphetamine abuse Homelessness -Admission or transfer to neuropsychiatric unit for continued evaluation and treatment. - All lab work was reviewed and interpreted personally by myself, the ER physician - Evaluation and treatment of this problem were appropriate in the emergency setting Lab Data 10/29/23:10/29/23: Laboratory Results WBC 5.51 10^3/uL (3.29-11.43) 10/29/23 RBC 4.14 10^6/uL (3.85-5.65) 10/29/23: Hgb 12.80 g/dL (11.27-16.99) 10/29/23: Hct 39.3 % (37-53) 10/29/23: MCV 94.9 fl (82-101) 10/29/23: MCH 30.9 pg (27-33) 10/29/23: MCHC 32.6 g/dL (30-55) 10/29/23 RDW 13.9 % (12.1-15.1) 10/29/23 Plt Count 231 10^3/cmm (157-399) 10/29/23 MPV 9.0 fL (7.4-10.4) 10/29/23 Neut % (Auto) 48.4 % 10/29/23 Lymph % (Auto) 36.5 % 10/29/23: Coke % (Auto) 8.2 % 10/29/23 Eos % (Auto) 6.2 % 10/29/23 Baso % (Auto) 0.7 % 10/29/23 Neut # (Auto) 2.67 10^3/uL (1.8-7.7) 10/29/23 Lymph # (Auto) 2.0 10^3/uL (0.8-4.8) 10/29/23 Coke # (Auto) 0.5 10^3/uL (0.2-0.9) 10/29/23 Eos # (Auto) 0.3 10^3/uL (0.0-0.8) 10/29/23 Baso # (Auto) 0.0 10^3/uL (0.0-0.1) 10/29/23 Nucleated RBC % (auto) 0 % 10/29/23 Nucleated RBCs # 0.0 /100WBC 08/16/24 22:27 Sodium 141 mmol/L (136-145) 10/29/23 22:27 Potassium 4.3 mmol/L (3.5-5.1) 10/29/23 22: Chloride 106 mmol/L (98-107) 10/29/23 22: Carbon Dioxide 23 mmol/L (22-29) 10/29/23 22: Anion Gap 16.3 (5-19) 10/29/23 22: BUN 12 mg/dL (6-20) 10/29/23 22: Creatinine 0.9 mg/dL (0.7-1.2) 10/29/23 22: GFR Calculation 87.0 mL/min (90-130) L 10/29/23: Glucose 115 mg/dL (65-115) 10/29/23 22: Calculated Osmolality 293 mOsm/kg (285-295) 10/29/23: Calcium 8.9 mg/dL (8.5-10.5) 10/29/23: Total Bilirubin 0.2 mg/dL (0.15-1.2) 10/29/23 22: AST 19 U/L (0-40) 10/29/23 22: ALT 16 U/L (0-41) 10/29/23 22: Alkaline Phosphatase 88 U/L (40-130) 10/29/23 22: Total Protein 6.5 g/dL (6.6-8.7) L 10/29/23 22: Albumin 3.7 g/dL (3.5-5.2) 10/29/23: Globulin 2.8 g/dL (1.3-4.6) 10/29/23 22: TSH 4.23 uIU/mL (0.27-4.20) H 10/29/23 22:27 Urine Color Yellow (Yellow) 10/30/23 00:10 Urine Appearance Clear (CLEAR) 10/30/23 00:10 Urine pH 6.0 (5-7) 10/30/23 00:10 Ur Specific [place] 1.021 (1.005-1.030) 10/30/23 00:10 Urine Protein Negative (Negative) 10/30/23 00:10 Urine Glucose (UA) Negative (Normal) 10/30/23 00:10 Urine Ketones Trace (Negative) 10/30/23 00:10 Urine Blood Negative (Negative) 10/30/23 00:10 Urine Nitrate Negative (Negative) 10/30/23 00:10 Urine Bilirubin Negative (Negative) 10/30/23 00:10 Urine Urobilinogen 1.0 mg/dL (Negative) 10/30/23 00:10 Ur Leukocyte Esterase Trace (Negative) A 10/30/23 00:10 Urine RBC 0-2 /hpf (0-2) 10/30/23 00:10 Urine WBC 11-20 /hpf (0-5) H 10/30/23 00:10 Ur Squamous Epith Cells 0-5 /hpf (0-5) 10/30/23 00:10 Amorphous Sediment Not Reportable 10/30/23 00:10 Urine Bacteria None seen /hpf (NONE) 10/30/23 00:10 Hyaline Casts 0-4 /lpf H 10/30/23 00:10 Salicylates < 0.3 mg/dL (3-10) L 10/29/23 22:27 Urine Opiates Screen Negative ng/mL (Negative) 10/30/23 00:10 Acetaminophen < 5.0 ug/mL (10-30) L 10/29/23 22:27 Ur Barbiturates Screen Negative ng/mL (Negative) 10/30/23 00:10 Ur Phencyclidine Scrn Negative ng/mL (Negative) 10/30/23 00:10 Ur Amphetamines Screen Positive ng/mL (Negative) H 10/30/23 00:10 U Benzodiazepines Scrn Negative ng/mL (Negative) 10/30/23 00:10 Urine Cocaine Screen Negative ng/mL (Negative) 10/30/23 00:10 U Marijuana (THC) Screen Positive ng/mL (Negative) H 10/30/23 00:10 Ethyl Alcohol < 10 mg/dL (0-10) 10/29/23 22:27 Influenza Type A Ag negative (Negative) 10/29/23 22:38 Influenza Type B Ag negative (Negative) 10/29/23 22:38 RSV Antigen Negative (Negative) 10/29/23 22:38 SARS-CoV-2 Ag (Rapid) negative (Negative) 10/29/23 22:38 No radiology studies performed this visit Discharge Plan Discharge Clinical Impression: Suicidal ideation, Depression, Homeless, Methamphetamine abuse Condition: Stable Prescriptions: No Action levothyroxine 25 mcg tablet 25 mcg PO DAILY 30 Days Qty: 30 5RF atenolol 25 mg tablet 25 mg PO DAILY 30 Days Qty: 30 5RF Rx Instructions: take 1 PO daily citalopram 20 mg Tablet 20 mg PO DAILY Qty: 30 1RF Referrals: Catracho Mix MD [Primary Care Provider] - Coding Level of Care Code ED [employer] for Rochelle Pichardo
[2023-10-29 22:32] LABS: Basophils % 0.7 %; Eosinophils # 0.3 10^3/uL (0.0-0.8); Eosinophils % 6.2 %; Hematocrit 39.3 % (37-53); Lymphocytes % 36.5 %; Mean Corpuscular HGB Conc 32.6 g/dL (30-55); Mean Corpuscular Hemoglobin 30.9 pg (27-33); Mean Corpuscular Volume 94.9 fl (82-101); Monocytes # 0.5 10^3/uL (0.2-0.9); Monocytes % 8.2 %; Neutrophils # 2.67 10^3/uL (1.8-7.7); Neutrophils % 48.4 %; Nucleated Red Blood Cells % 0 %; Platelet Count 231 10^3/cmm (157-399); Red Blood Count 4.14 10^6/uL (3.85-5.65); Red Cell Distribution Width 13.9 % (12.1-15.1); White Blood Count 5.51 10^3/uL (3.29-11.43)
[2023-10-29 22:59] LABS: Acetaminophen < 5.0 ug/mL (10-30); Alanine Aminotransferase 16 U/L (0-41); Albumin Level 3.7 g/dL (3.5-5.2); Alcohol Level < 10 mg/dL (0-10); Alkaline Phosphatase 88 U/L (40-130); Anion Gap 16.3 (5-19); Aspartate Amino Transferase 19 U/L (0-40); Blood Urea Nitrogen 12 mg/dL (6-20); Calcium 8.9 mg/dL (8.5-10.5); Carbon Dioxide 23 mmol/L (22-29); Chloride 106 mmol/L (98-107); Creatinine Clr Calc Pharmacy 88.4047; Globulin 2.8 g/dL (1.3-4.6); Glucose 115 mg/dL (65-115); Osmolality Calculated 293 mOsm/kg (285-295); Potassium 4.3 mmol/L (3.5-5.1); Salicylate < 0.3 mg/dL (3-10); Sodium 141 mmol/L (136-145); Thyroid Stimulating Hormone 4.23 uIU/mL (0.27-4.20); Total Bilirubin 0.2 mg/dL (0.15-1.2); Total Protein 6.5 g/dL (6.6-8.7)
[2023-10-29 23:02] LABS: Influenza A by IFA negative (Negative); Influenza B by IFA negative (Negative); SARS Covid-2 Antigen negative (Negative)
[2023-10-29 23:04] LABS: RSV Transfer Patient (ED) Negative (Negative)
--- NOTE | 2023-10-29 23:17 | PC.NURSE ---
Patient asked to produce small amount of urine for ordered urine sample. Patient stated that he would try later. Nurse informed patient that time would be provided for another urine attempt but if it were unsuccessful, patient would have to be straight cathed for labs. Patient then sat up from bed and stated, Well I'll just get the fuck out of here then, I didn't ask for this. Nurse again stated that all that was needed was a small urine sample. Patient once again attempting to produce urine at this time.
[2023-10-30 00:18] LABS: Bilirubin Urine Negative (Negative); Blood Urine Negative (Negative); Glucose Urine UA Negative (Normal); Ketones Urine Trace (Negative); Leukocyte Esterase Urine Trace (Negative); Nitrate Urine Negative (Negative); Protein Urine Negative (Negative); Specific Gravity, Urine 1.021 (1.005-1.030); Urine Appearance Clear (CLEAR); Urine Color Yellow (Yellow)
[2023-10-30 00:20] LABS: Bacteria Urine None Seen /hpf; Hyaline Casts Urine 0-4 /lpf; RBC Urine 0-2 /hpf (0-2); Squamous Epithelial Cell Urine 0-5 /hpf (0-5)
[2023-10-30 00:25] LABS: Amphetamines Screen Urine Positive (Negative); Barbiturates Screen Urine Negative (Negative); Benzodiazepines Screen Urine Negative (Negative); Cocaine Screen Urine Negative (Negative); Opiate Screen Urine Negative (Negative); PCP Screen Urine Negative (Negative); THC Screen Urine Positive (Negative)
--- NOTE | 2023-10-30 02:21 | SUR.EXTENDED ---
[facility] has No Beds - Check back after 829-
[2023-10-30 02:40] VITALS: BP 105/66; PULSE 65; O2SAT 97
[2023-10-30 06:21] VITALS: BP 130/70; PULSE 64; O2SAT 96
--- NOTE | 2023-10-30 08:00 | XRR_ITS ---
PROCEDURE INFORMATION: Exam: XR Chest Exam date and time: 10/30/2023 8:05 AM Age: 58 years old Clinical indication: Dyspnea; Additional info: Psych placement TECHNIQUE: Imaging protocol: Radiologic exam of the chest. Views: 1 view. COMPARISON: CT angio chest PE protcl [id number] 05/16/2020 2:16 AM FINDINGS: Lungs: Bilateral apical fibrotic changes. No focal infiltrates. Scattered millimetric calcified granulomas. Pleural spaces: Unremarkable. No pleural effusion. No pneumothorax. Heart/Mediastinum: Unremarkable. No cardiomegaly. Vasculature: Aortic arch calcifications. Bones/joints: Curvature of the thoracic spine convex to the right. XR/XR chest 1V portable [id number] IMPRESSION: No acute cardiopulmonary process.
[2023-10-30] MEDS: nicotine 21 mg Patch 1 PATCH TRANSDERMA (08:11)
--- NOTE | 2023-10-30 14:59 | PC.NURSE ---
Robyn Vides, Pediatrician [facility] has contacted the following psychiatric facilities regarding this patient: [facility] - they are both full [facility] - pt is too old [facility] - they are full [facility] - faxed the paperwork, waiting for a response [facility] - they are full [facility] - they are full [facility] - faxed the paperwork, waiting for a response [facility] - faxed the paperwork, waiting for a response [facility] - faxed the paperwork, waiting for a response [facility] - faxed the paperwork, waiting for a response [facility] - patient is too old [facility] - [facility] - they are full [facility] - they are full [facility] - faxed the paperwork, waiting for a response [facility] - faxed the paperwork, waiting for a response [facility] - faxed the paperwork, waiting for a response [facility] - faxed the paperwork, watiting for a response [facility] - they are full
--- NOTE | 2023-10-30 19:54 | PC.NURSE ---
Assumed care from day shift nurse at shift change.
[2023-10-30 20:03] VITALS: BP 126/69; PULSE 71; O2SAT 98
--- NOTE | 2023-10-30 21:01 | PC.NURSE ---
Report called to Nurse Calvo at [facility]. Awaiting transport.
== END 2023-10-30 22:30 ==
PROVIDERS: Emergency Medicine; Emergency Provider Emergency Medicine; PCP Family Medicine
DX: R45.851 Suicidal ideations (principal); F32.A Depression, unspecified; F15.10 Other stimulant abuse, uncomplicated; Z59.00 Homelessness unspecified; Z11.52 Encounter for screening for COVID-19; I10 Essential (primary) hypertension; F17.210 Nicotine dependence, cigarettes, uncomplicated
CPT/HCPCS: 71045; 80053; 80306; 80307; 81001; 84443; 85025; 87426; 87804; 87899; 93005; 99285

== ENCOUNTER → 2024-08-31 08:05 | Outpatient (BNVA) | payer MEDICARE, SELFPAY | PROVIDERS: PCP Family Medicine; Visit Provider Family Medicine | DX: Z00.00 Encounter for general adult medical examination without abnormal findings (principal); E03.9 Hypothyroidism, unspecified; R35.0 Frequency of micturition; Z51.81 Encounter for therapeutic drug level monitoring | CPT/HCPCS: 80053; 84153; 84439; 84443; 85025 ==